=== PATIENT | female | born 1955 | race African-American/Black ===

== ENCOUNTER 2019-09-30 12:27 | Inpatient (IN) | payer MEDICARE, MEDICAID ==
[~2019-09-30] VITALS: Ht 162.6 cm; Wt 59.4 kg
[~2019-09-30 12:27] MED LIST: CATAPRES0.1 MG ORAL; CRESTOR40 MG ORAL; DIOVAN HCT 1601 EACH ORAL; NEURONTIN300 MG ORAL; NOVOLIN R100 UNIT/1 SUBQ; PREMPRO 0.625-1 EAC1 PO; VICODIN ES 7.51 EAC1 ORAL; VITAMIN D1000 UNI1 ORAL
[2019-09-30 12:30] VITALS: BP 181/70
--- NOTE | 2019-09-30 12:30 | NUR ---
Note undone in EDM - 09/30/19 at 1407 by JULES ED Nurse Note: Patient brought into [facility] by wheelchair accompanied by cousin c/o n/v/d x 1 week with generalized 10/10 body aches d/t recent radiation therapy post-cervical cancer dx. Patient AxO x 4, unable to ambulate more than a few steps d/t the pain she feels. 22g IV started in right hand. 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 VSS. Blood sent to lab. Patient unable to urinate at the moment.
--- NOTE | 2019-09-30 12:30 | NUR ---
ED Nurse Note: Patient BIBA from convalescent facility d/t hypertension. 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 Blood drawn and sent to lab.
--- NOTE | 2019-09-30 12:54 | NUR ---
ED Nurse Note: Patient O2 sat 80% with god waveform on the monitor. Patient denies shortness of breath. Patient placed on 2L NC, O2 sat went up to 94%. Dr. Washington notified.
[2019-09-30] MEDS ORDERED: Nitroglycerin 2% oint pkt TOPIC ONE (13:00)
--- NOTE | 2019-09-30 13:24 | Emergency Room Report ---
History of Present Illness General Chief Complaint: Hypertension Source: Patient (Todd Washington M.D.) Present Illness HPI 64-year-old female history of hypertension, diabetes, end-stage renal disease on dialysis Thursday, stroke presented for hypertension. Patient apparently was hypertensive this morning in the 220s. EMS called. On arrival to ER patient with systolic blood pressure in the 180s. She complained of mild shortness of breath but denied any chest pain, nausea, vomiting. She does report a cough but no fever. He did go to dialysis yesterday. (Todd Washington M.D.) Allergies: Coded Allergies: CODEINE (Verified Allergy, Mild, 06/16/14) OXYCODONE (Verified Allergy, Mild, 06/16/14) Uncoded Allergies: SULFA (Allergy, Unknown, 09/30/19) Patient History Past Medical History: see triage record Last Menstrual Period: na Reviewed Nursing Documentation: PMH: Agreed; PSxH: Agreed (Todd Washington M.D.) Nursing Documentation-PMH Hx Cardiac Problems: Yes - ESRD with HD Hx Hypertension: Yes Hx Diabetes: Yes Hx Cancer: No Hx Gastrointestinal Problems: No Hx Neurological Problems: No (Todd Washington M.D.) Review of Systems All Other Systems: negative except mentioned in HPI (Todd Washington M.D.) Physical Exam Vital Signs Date Time Temp Pulse Resp B/P (MAP) Pulse Ox O2 Delivery O2 Flow Rate FiO2 09/30/19 12:24 98.8 77 14 184/74 (110) 97 Room Air Sp02 EP Interpretation: reviewed, abnormal General Appearance: well appearing, no apparent distress Head: normocephalic, atraumatic Eyes: bilateral eye PERRL, bilateral eye EOMI ENT: hearing grossly normal, moist mucus membranes Neck: full range of motion, supple Respiratory: normal breath sounds, no respiratory distress, no retraction, no wheezing, other - Rhonchi noted Cardiovascular #1: normal peripheral pulses, regular rate, rhythm, no murmur, other - Trace lower extremity edema. Dialysis access left upper extremity Gastrointestinal: non tender, soft, non-distended, no guarding Neurologic: alert, oriented x3, no focal defects Skin: normal color, warm/dry (Todd Washington M.D.) Medical Decision Making Diagnostic Impression: Primary Impression: Hypertensive urgency Additional Impressions: Fluid overload Qualified Codes: E87.79 - Other fluid overload Pulmonary edema Qualified Codes: J81.0 - Acute pulmonary edema End stage renal disease on dialysis ER Course Differential diagnosis included but not limited to fluid overload, pneumonia, CHF, hypertensive urgency to name a few. Patient given nitroglycerin in addition to hydralazine on arrival. Chest x-ray demonstrated evidence of bilateral pulmonary edema with pleural effusion. As patient is a dialysis patient she will be admitted to the hospital for urgent dialysis. Case discussed with Dr. Stone. He agreed to admit. Laboratory Tests Test 09/30/19 14:30 10/01/19 18:45 White Blood Count 8.2 K/UL (4.8-10.8) 2.9 K/UL (4.8-10.8) #L Red Blood Count 2.42 M/UL (4.20-5.40) L 2.29 M/UL (4.20-5.40) L Hemoglobin 7.0 G/DL (12.0-16.0) L 6.4 G/DL (12.0-16.0) *L Hematocrit 20.6 % (37.0-47.0) L 19.8 % (37.0-47.0) L Mean Corpuscular Volume 85 FL (80-99) 87 FL (80-99) Mean Corpuscular Hemoglobin 29.0 PG (27.0-31.0) 28.0 PG (27.0-31.0) Mean Corpuscular Hemoglobin Concent 34.1 G/DL (32.0-36.0) 32.3 G/DL (32.0-36.0) Red Cell Distribution Width 15.0 % (11.6-14.8) H 16.5 % (11.6-14.8) H Platelet Count 213 K/UL (150-450) 189 K/UL (150-450) Mean Platelet Volume 8.5 FL (6.5-10.1) 9.8 FL (6.5-10.1) Neutrophils (%) (Auto) % (45.0-75.0) % (45.0-75.0) Lymphocytes (%) (Auto) % (20.0-45.0) % (20.0-45.0) Monocytes (%) (Auto) % (1.0-10.0) % (1.0-10.0) Eosinophils (%) (Auto) % (0.0-3.0) % (0.0-3.0) Basophils (%) (Auto) % (0.0-2.0) % (0.0-2.0) Differential Total Cells Counted 100 100 Neutrophils % (Manual) 74 % (45-75) 63 % (45-75) Lymphocytes % (Manual) 16 % (20-45) L 31 % (20-45) Monocytes % (Manual) 9 % (1-10) 5 % (1-10) Eosinophils % (Manual) 1 % (0-3) 1 % (0-3) Basophils % (Manual) 0 % (0-2) 0 % (0-2) Band Neutrophils 0 % (0-8) 0 % (0-8) Platelet Estimate Adequate Adequate Platelet Morphology Normal Normal Hypochromasia 1+ Anisocytosis 1+ 1+ Sodium Level 140 MMOL/L (136-145) 136 MMOL/L (136-145) Potassium Level 3.5 MMOL/L (3.5-5.1) 3.5 MMOL/L (3.5-5.1) Chloride Level 98 MMOL/L (98-107) 97 MMOL/L (98-107) L Carbon Dioxide Level 28 MMOL/L (21-32) 29 MMOL/L (21-32) Anion Gap 14 mmol/L (5-15) 10 mmol/L (5-15) Blood Urea Nitrogen 25 mg/dL (7-18) H 18 mg/dL (7-18) Creatinine 5.8 MG/DL (0.55-1.30) H 4.5 MG/DL (0.55-1.30) H Estimate Glomerular Filtration Rate 8.8 mL/min (>60) 12.0 mL/min (>60) Glucose Level 119 MG/DL (74-106) H 148 MG/DL (74-106) H Calcium Level 9.2 MG/DL (8.5-10.1) 9.2 MG/DL (8.5-10.1) Total Bilirubin 0.6 MG/DL (0.2-1.0) 0.4 MG/DL (0.2-1.0) Aspartate Amino Transferase (AST) 20 U/L (15-37) 17 U/L (15-37) Alanine Aminotransferase (ALT) 14 U/L (12-78) 17 U/L (12-78) Alkaline Phosphatase 117 U/L (46-116) H 99 U/L (46-116) Troponin I 0.040 ng/mL (0.000-0.056) 0.013 ng/mL (0.000-0.056) Pro-B-Type Natriuretic Peptide 04553 pg/mL (0-125) H Total Protein 6.7 G/DL (6.4-8.2) 6.7 G/DL (6.4-8.2) Albumin 3.1 G/DL (3.4-5.0) L 2.5 G/DL (3.4-5.0) L Globulin 3.6 g/dL 4.2 g/dL Albumin/Globulin Ratio 0.9 (1.0-2.7) L 0.6 (1.0-2.7) L Hepatitis B Surface Antibody, Quant Pending Nucleated Red Blood Cells 2 /100 WBC Polychromasia 1+ Triglycerides Level 93 MG/DL (30-150) Cholesterol Level 163 MG/DL (< 200) LDL Cholesterol 75 mg/dL (<100) HDL Cholesterol 54 MG/DL (40-60) Cholesterol/HDL Ratio 3.0 (3.3-4.4) L Microbiology Date/Time Source Procedure Growth Status 09/30/19 15:28 Rectum VRE Culture - Final NO VANCOMYCIN RESISTANT ENTEROCOCCUS ... Complete (Todd Washington M.D.) ER Course Please see above note. Patient developed respiratory distress with hypoxia in the emergency department. BiPAP ordered and increased level of care. Patient improved on BiPAP. No respiratory distress. Anticipated patient will improve with dialysis. Evaluated by Dr. Stone in the emergency department. Laboratory Tests Test 09/30/19 14:30 White Blood Count 8.2 K/UL (4.8-10.8) Red Blood Count 2.42 M/UL (4.20-5.40) L Hemoglobin 7.0 G/DL (12.0-16.0) L Hematocrit 20.6 % (37.0-47.0) L Mean Corpuscular Volume 85 FL (80-99) Mean Corpuscular Hemoglobin 29.0 PG (27.0-31.0) Mean Corpuscular Hemoglobin Concent 34.1 G/DL (32.0-36.0) Red Cell Distribution Width 15.0 % (11.6-14.8) H Platelet Count 213 K/UL (150-450) Mean Platelet Volume 8.5 FL (6.5-10.1) Neutrophils (%) (Auto) % (45.0-75.0) Lymphocytes (%) (Auto) % (20.0-45.0) Monocytes (%) (Auto) % (1.0-10.0) Eosinophils (%) (Auto) % (0.0-3.0) Basophils (%) (Auto) % (0.0-2.0) Differential Total Cells Counted 100 Neutrophils % (Manual) 74 % (45-75) Lymphocytes % (Manual) 16 % (20-45) L Monocytes % (Manual) 9 % (1-10) Eosinophils % (Manual) 1 % (0-3) Basophils % (Manual) 0 % (0-2) Band Neutrophils 0 % (0-8) Platelet Estimate Adequate Platelet Morphology Normal Hypochromasia 1+ Anisocytosis 1+ Sodium Level 140 MMOL/L (136-145) Potassium Level 3.5 MMOL/L (3.5-5.1) Chloride Level 98 MMOL/L (98-107) Carbon Dioxide Level 28 MMOL/L (21-32) Anion Gap 14 mmol/L (5-15) Blood Urea Nitrogen 25 mg/dL (7-18) H Creatinine 5.8 MG/DL (0.55-1.30) H Estimate Glomerular Filtration Rate 8.8 mL/min (>60) Glucose Level 119 MG/DL (74-106) H Calcium Level 9.2 MG/DL (8.5-10.1) Total Bilirubin 0.6 MG/DL (0.2-1.0) Aspartate Amino Transferase (AST) 20 U/L (15-37) Alanine Aminotransferase (ALT) 14 U/L (12-78) Alkaline Phosphatase 117 U/L (46-116) H Troponin I 0.040 ng/mL (0.000-0.056) Pro-B-Type Natriuretic Peptide 93202 pg/mL (0-125) H Total Protein 6.7 G/DL (6.4-8.2) Albumin 3.1 G/DL (3.4-5.0) L Globulin 3.6 g/dL Albumin/Globulin Ratio 0.9 (1.0-2.7) L Hepatitis B Surface Antibody, Quant Pending (Tian Hernandez MD) EKG Diagnostic Results EP Interpretation: 77 Rate: normal Rhythm: NSR ST Segments: no acute changes (Todd Washington M.D.) Rhythm Strip Diag. Results Rhythm Strip Time: 14:00 EP Interpretation: yes Rate: 75 Rhythm: NSR, no ectopy (Todd Washington M.D.) EP Interpretation: yes Rhythm: NSR, no PVC's, no ectopy (Tian Hernandez MD) Chest X-Ray Diagnostic Results Chest X-Ray Diagnostic Results : Chest X-Ray Ordered: Yes # of Views/Limited/Complete: 1 View Indication: Shortness of Breath EP Interpretation: Yes Interpretation: other - Bilateral pleural effusion with pulmonary edema. Electronically Signed by: Todd Washington MD (Todd Washington M.D.) Last Vital Signs Date Time Temp Pulse Resp B/P (MAP) Pulse Ox O2 Delivery O2 Flow Rate FiO2 09/30/19 13:07 181/79 09/30/19 12:24 98.8 77 14 97 Room Air (Todd Washington M.D.) Last Vital Signs Date Time Temp Pulse Resp B/P (MAP) Pulse Ox O2 Delivery O2 Flow Rate FiO2 10/01/19 00:00 72 10/01/19 00:00 Nasal Cannula 2.0 09/30/19 23:24 139/60 09/30/19 18:48 18 96 30 09/30/19 17:15 97.6 Status: improved (Tian Hernandez MD) Disposition: ADMITTED INPATIENT Condition: Serious Todd Washington M.D. Sep 30, 2019 13:24 Tian Hernandez MD Sep 30, 2019 15:32
--- NOTE | 2019-09-30 14:15 | Diagnostic Imaging Report ---
Indication: Reason For Exam: SOB Technique: One view of the chest Comparison: 11/02/2006 Findings: The heart is enlarged. There is generalized bilateral interstitial and hazy airspace disease, more focal dense consolidation in the right upper lobe.. There are bilateral pleural effusions, right greater than left. There are degenerative spondylosis changes. There is a right chest port catheter. Venous stents are seen in the left axilla. Impression: Cardiac megaly Bilateral interstitial and airspace disease, likely pulmonary edema, infiltrates also possible. Bilateral right greater than left pleural effusions Other findings as noted Findings discussed by phone with Dr. Reed in the emergency room at the time of interpretation
--- NOTE | 2019-09-30 14:20 | NUR ---
ED Nurse Note: Adjunct History Instructor from lab at bedside obtaining blood
[2019-09-30 14:30] VITALS: BP 169/78
[2019-09-30 14:43] LABS: HEMATOCRIT 20.6 % (37.0-47.0); MEAN CORPUSCULAR VOLUME 85 FL (80-99); PLATELET COUNT 213 K/UL (150-450); RED BLOOD COUNT 2.42 M/UL (4.20-5.40); WHITE BLOOD COUNT 8.2 K/UL (4.8-10.8)
[2019-09-30 14:56] LABS: ANION GAP 14 mmol/L (5-15); BLOOD UREA NITROGEN 25 mg/dL (7-18); CALCIUM 9.2 MG/DL (8.5-10.1); CARBON DIOXIDE 28 MMOL/L (21-32); CHLORIDE 98 MMOL/L (98-107); CREATININE 5.8 MG/DL (0.55-1.30); POTASSIUM 3.5 MMOL/L (3.5-5.1); SODIUM 140 MMOL/L (136-145)
[2019-09-30 15:05] LABS: ALANINE AMINOTRANSFERASE 14 U/L (12-78); ALBUMIN 3.1 G/DL (3.4-5.0); ALBUMIN/GLOBULIN RATIO 0.9 (1.0-2.7); ALKALINE PHOSPHATASE 117 U/L (46-116); ASPARTATE AMINO TRANSFERASE 20 U/L (15-37); BILIRUBIN,TOTAL 0.6 MG/DL (0.2-1.0)
[2019-09-30] MEDS ORDERED: Heparin Sod 1000 units/ml 10ml IV PRN (15:30)
--- NOTE | 2019-09-30 15:40 | NUR ---
ED Nurse Note: Patient feeling more short of breath, RR 26, Dr. Hernandez aware. RT called to start patient on BiPAP.
--- NOTE | 2019-09-30 15:44 | NUR ---
Received pt on 2L NC 28%FiO2. Placed pt on Bipap 10/5- 30%FiO2 per Dr. Hernandez's order. Foam tapes applied on nose bridge, cheeks and chin. Pt is awake, alert, able to follow commands. Pt is SOB RR 26-28bpm, saturates at 98% on 30%FiO2. Alarms are set and audible, Bipap is plugged into the red outlet, ambu bag is at bedside. Will continue to monitor pt.
--- NOTE | 2019-09-30 16:10 | NUR ---
ED Nurse Note: Patient feeling less short of breath on BiPAP, RR 19, patient resting in bed.
[2019-09-30 16:30] VITALS: BP 151/73
--- NOTE | 2019-09-30 17:00 | NUR ---
NURSE NOTES: Received report from MAYRA Marti. Patient arrived to unit in stable condition. Patient is alert and oriented x 3-4. No s/sx of SOB, breathing is even and unlabored, pt continued on BiPAP 10/5 FiO2 30% from ER at this time. SpO2 98%. Denies any presence of pain or discomfort at this time. Pt noted with Left upper arm AV shunt, right breast mastectomy, right chest port-a-cath, no skin breakdown noted. Bed is in lowest position, brakes engaged. call light is kept within easy reach. Will continue to monitor patient.
--- NOTE | 2019-09-30 17:04 | NUR ---
ED Nurse Note: Report given to Kaia NUNEZ
[2019-09-30] MEDS ORDERED: RENVELA0.8 GM ORAL (17:11)
[2019-09-30] MEDS ORDERED: ADALAT10 MG ORAL (17:11)
[2019-09-30] MEDS ORDERED: DIOVAN80 MG ORAL (17:11)
[2019-09-30] MEDS ORDERED: VITAMIN B-1100 MG ORAL (17:11)
[2019-09-30] MEDS ORDERED: FOLIC ACID1 MG ORAL (17:11)
[2019-09-30] MEDS ORDERED: LOVENOX10 MG SUBQ (17:11)
[2019-09-30] MEDS ORDERED: LATANOPROST2.5 ML BOTH EYES (17:11)
[2019-09-30] MEDS ORDERED: GABAPENTIN800 MG ORAL (17:11)
--- NOTE | 2019-09-30 17:30 | History and Physical Report ---
DATE OF ADMISSION: 09/30/2019 CHIEF COMPLAINT AND REASON FOR HOSPITALIZATION: The patient admitted with shortness of breath, CHF, and possible infiltrate. HISTORY OF PRESENT ILLNESS: The patient is a resident of an [facility], has end-stage renal disease, on dialysis; history of breast cancer with a right mastectomy; history of CVA with expressive aphasia; diabetes; anemia; hypertension. She had marked elevation of blood pressure over 200 systolic in the intermediate and came to the emergency room where chest x-ray suggest CHF. ALLERGIES: The patient is unable to give me an adequate list of allergies. Noted, sulfa and codeine, not clear in nature. PAST SURGICAL HISTORY: Right mastectomy and dialysis. MEDICATIONS: Dulcolax suppository p.r.n., Lovenox 30 mg daily, , Fleet Enema p.r.n., folic acid 1 mg daily, gabapentin 800 mg every 8 hours, latanoprost one drop both eyes at bedtime, MOM p.r.n., nifedipine 10 mg two times a day, Novolin R sliding scale, Renvela two tablets three times a day, Tylenol p.r.n., valsartan 160 mg b.i.d., vitamin B1 one tablet daily. include aspirin 81 mg daily, atorvastatin 20 mg daily, clonidine 0.2 mg every 4 hours p.r.n., DSS 100 mg daily, Cymbalta 60 mg daily, diphenhydramine 50 mg p.r.n. at bedtime. SYSTEM REVIEW: She is a poor historian. HEAD, EYES, EARS, NOSE, AND THROAT: Vision and hearing appear to be good. ENDOCRINE: History of diabetes. No known thyroid disease. PULMONARY: No definite asthma. CARDIAC: No definite angina or IN per the patient. GASTROINTESTINAL: Denies nausea and vomiting. GENITOURINARY: She has end-stage renal disease. NEUROLOGIC: CVA. PHYSICAL EXAMINATION: GENERAL: The patient is lying in bed, moderately short of breath. VITAL SIGNS: In the emergency room, blood pressure 184/74, temperature 98.8, pulse 77, respirations 14. HEAD, EYES, EARS, NOSE, AND THROAT: Sclerae are nonicteric. Ocular motions intact in all directions. Oral mucosa moist. NECK: No adenopathy. LUNGS: Diminished breath sounds at the bases. HEART: She is tachypneic. I hear no rales or rhonchi. CHEST: There is a right mastectomy. There is a nodule in the right upper chest area, which could be tumor and her incisions of the mastectomy is somewhat nodular. Left breast is intact, no masses. ABDOMEN: Soft without organomegaly. EXTREMITIES: No edema, cyanosis, or clubbing. She has an AV fistula. NEUROLOGIC: She is alert, responsive, restless. Has a fluent aphasia, able to answer some questions. Ocular motions are intact in all directions. Smile is symmetric. She has a mild right-sided weakness. IMPRESSION: 1. Congestive heart failure, acute on chronic. 2. Possible pleural effusions, possible metastatic disease from breast cancer. 3. End-stage renal disease. 4. History of CVA. 5. History of stroke with aphasia. PLAN: Dialysis. Empiric antibiotics. Comfort measures and waiting call back from the family. Golden Stone M.D. DR: ZAFAR JOB#: [id number] CC:
--- NOTE | 2019-09-30 18:30 | NUR ---
NURSE NOTES: Received admission orders from Dr. Stone via telephone. Per Dr. Stone pt will have STAT hemodialysis tonight and tomorrow, [facility] dialysis made aware, [facility] nurse will perform HD tonight. Dr. Stnoe made aware of hemoglobin level of 7.0, per Dr. Stone no transfusion at this time. Per Dr. Stone may use right chest port-a-cath for IV infusion. Draw blood labs during hemodialysis. Continue SNF medications. Clonidine 0.1 mg PO Q2HR PRN for SBP >175 mmHg. Orders entered, noted, and carried out. Will continue to monitor patient.
--- NOTE | 2019-09-30 18:32 | NUR ---
NURSE NOTES: Dr. Stone ordered code status DNR/DNI. Patient noted with POLST: DNR, comfort measures, no artificial tube feedings. POLST in chart. Charge nurse aware. Will continue to monitor patient.
--- NOTE | 2019-09-30 18:45 | NUR ---
NURSE NOTES: Per [facility] pharmacist, facility does not carry Valsartan and is substituted with Irbesartan. Noted.
--- NOTE | 2019-09-30 19:35 | NUR ---
NURSE NOTES: Received pt from Devante Ramirez RN. pt is observed resting in bed, eyes closed, lethargic, opens eyes to name and light shaking. no s/sx of pain noted at this time. pt is on 2 L O2 via NC, tolerating well, saturation: 98%; no s/sx of respiratory distress noted. equipment monitor phototypesetting shows SR at this time; no acute cardiac distress noted. R chest port-a-cath noted, patent and intact, asymptomatic. Left AV shunt noted, thrill and bruit present upon palpation. bed in lowest position and locked, siderails up X3, call light within reach. will continue to monitor.
[2019-09-30] MEDS ORDERED: Acetaminophen 500mg (ES) tab ORAL PRN (19:45)
[2019-09-30 20:00] VITALS: BP 135/69
[2019-09-30] MEDS ORDERED: MILK OF MA400 MG/51 ORAL (20:23)
[2019-09-30] MEDS ORDERED: FLEET ENEMA133 ML RECTAL (20:23)
[2019-09-30] MEDS ORDERED: NOVOLOG100 UNITS1 SQ (20:23)
[2019-09-30] MEDS ORDERED: ACETAMINOPHEN325 M1 ORAL (20:23)
[2019-09-30] MEDS ORDERED: NOVOLIN R100 UNIT/1 SUBQ (20:23)
[2019-09-30] MEDS ORDERED: TYLENOL EXTRA500 MG ORAL (20:23)
[2019-09-30] MEDS ORDERED: DULCOLAX10 MG RC (20:23)
[2019-09-30] MEDS ORDERED: RENVELA800 MG ORAL (20:23)
--- NOTE | 2019-09-30 20:30 | NUR ---
NURSE NOTES: pt receiving HD, will hold medications until after HD is completed. pt is in stable condition at this time. will continue to monitor.
[2019-09-30] MEDS ORDERED: CATAPRES0.2 MG ORAL (20:51)
[2019-09-30] MEDS ORDERED: BENADRYL ALLERG25 M1 PO (20:51)
[2019-09-30] MEDS ORDERED: CYMBALTA60 MG ORAL (20:51)
[2019-09-30] MEDS ORDERED: COLACE100 MG ORAL (20:51)
[2019-09-30] MEDS ORDERED: ATORVASTATIN CA20 MG ORAL (20:51)
[2019-09-30] MEDS: Heparin 5000 units/ml inj SUBQ SCH (21:00)
[2019-09-30] MEDS: NovoLOG Insulin Flexpen SUBQ SCH (21:00)
[2019-09-30] MEDS: Aspirin EC 81mg tab ORAL SCH (23:23)
[2019-09-30] MEDS: Carvedilol 6.25mg Tab ORAL SCH (23:23)
[2019-09-30] MEDS: Losartan 50mg tab ORAL SCH (23:24)
[2019-09-30] MEDS: Latanoprost 0.005% Opth 2.5ml Soln BOTH EYES SCH (23:24)
[2019-09-30] MEDS: cefTRIAXone 1 GM in D5W 55 ML IVPB SCH (23:34)
[2019-10-01] VITALS (8 sets, daily range): BP systolic 130–212; BP diastolic 55–89
--- NOTE | 2019-10-01 04:20 | NUR ---
NURSE NOTES: pt attempted to ambulate unassisted and was exhibiting s/sx of visual and auditory hallucinations. pt c/o generalized pain. tylenol administered as per MD order; able to calm patient with therapeutic communication. pt noted to have temp of 100.0, cooling measures applied. ice packs placed on pt. will continue to monitor.
--- NOTE | 2019-10-01 04:30 | Consultation ---
DATE OF CONSULTATION: 09/30/2019 CARDIOLOGY CONSULTATION CONSULTING PHYSICIAN: Tian Dahl M.D. REQUESTING PHYSICIAN: Golden Stone M.D. REASON FOR CONSULTATION: Congestive heart failure. HISTORY OF PRESENT ILLNESS: This is a 64-year-old female, residing at a [facility] facility with end-stage renal disease, on hemodialysis who also suffered a prior stroke and has expressive aphasia. She has had increasing blood pressure over the past few days coupled with signs of congestive heart failure. Hospitalization has been initiated and I have been asked to assist with cardiovascular care. PAST MEDICAL HISTORY: Includes breast cancer with right mastectomy; end-stage renal disease, on hemodialysis; cerebrovascular accident with expressive aphasia; insulin-requiring diabetes mellitus; anemia of chronic kidney disease; hypertension with hypertensive heart disease; history of congestive heart failure; diabetic neuropathy, and hyperlipidemia. ALLERGIES: Include sulfa and codeine. MEDICATIONS: Prior to admission, reviewed and reconciled. SOCIAL HISTORY: Negative for smoking, alcohol abuse. FAMILY HISTORY: Not known. REVIEW OF SYSTEMS: No known history of retinopathy. Hearing is stable. She has expressive aphasia from a prior stroke. There are no records available regarding her current cardiac ejection fraction. There is no known history of cardiac arrhythmias or myocardial infarction. There is no history of asthma or COPD. There is no history of abnormal blood clotting. She is on insulin for diabetes as well as anti-lipid drugs. There is no history of thyroid disorder. She is on dialysis three times a week. PHYSICAL EXAMINATION: GENERAL: She is in moderate respiratory distress due to shortness of breath. VITAL SIGNS: Blood pressure 184/74, heart rate 77, respiratory rate 14, and afebrile. HEENT: Normocephalic and atraumatic. Conjunctivae pink. Sclerae are anicteric. Oropharynx clear. Mucous membranes moist. NECK: Supple. Jugular venous pressure grossly elevated. LUNGS: Diminished breath sounds and rales. CARDIAC: Regular rhythm and rate. Normal S1 and S2. A 1/6 systolic murmur at apex. BREASTS: Right mastectomy noted. ABDOMEN: Soft and nontender. EXTREMITIES: No clubbing or cyanosis. No edema. There is an AV fistula with palpable bruit. NEUROLOGIC: Aphasia to some questioning and mild right-sided weakness. LABORATORY AND DIAGNOSTIC DATA: Chest x-ray reveals pleural effusions bilaterally, right greater than left as well as pulmonary venous congestion. Labs - sodium 140, potassium 3.5, bicarbonate 28, BUN 25, creatinine 5.8, and glucose 119. Troponin 0.04. Pro-natriuretic peptide almost 22,000. Albumin 3.1. White count 8.2 and hemoglobin 7. EKG reveals sinus rhythm and nonspecific ST-T wave changes. IMPRESSION: 1. Acute on chronic systolic and diastolic congestive heart failure. 2. Pleural effusions. 3. End-stage renal disease. 4. Malignant hypertension/hypertensive urgency. 5. Anemia of chronic kidney disease. 6. Insulin-requiring diabetes mellitus with multiple complications. 7. History of breast cancer with right mastectomy. 8. History of cerebrovascular accident. PLAN: 1. Hemodialysis with ultrafiltration for volume management. 2. Maximize antihypertensive and anti-failure regimen (see orders). 3. Continue anti-platelet therapy. 4. Continue statin drug for LDL goal less than 70. 5. Titrate insulin dosing. 6. Topical nitrates for symptomatic relief of shortness of breath due to volume overload at this time. 7. DVT prophylaxis. 8. Echocardiogram to evaluate left ventricular function. 9. Consider symptomatic thoracentesis. 10. Favor packed red blood cell transfusion during hemodialysis to improve oxygen carrying capacity. Tian Dahl M.D. DR: TIFFANIE JOB#: [id number] CC:
--- NOTE | 2019-10-01 05:52 | NUR ---
NURSE NOTES: pt's temp noted to be 98.6. will continue to monitor.
[2019-10-01] MEDS: Nitroglycerin 2% oint pkt TOPIC SCH ×3 (06:00→18:31)
[2019-10-01] MEDS: NovoLOG Insulin Flexpen SUBQ SCH ×4 (06:30→21:00)
--- NOTE | 2019-10-01 07:29 | NUR ---
HAND-OFF: Report given to MAYRA Cruz. pt is in stable condition.
--- NOTE | 2019-10-01 07:30 | NUR ---
NURSE NOTES: Received report from Devante Duffy RN. Patient asleep in bed, opens eyes spontaneously, confused but able to make needs known and follow commands. Receiving O2 via nasal cannula @ 2L/min, respirations even and unlabored. Left AV shunt noted with bruit and thrill. Right upper chest portacath asymptomatic. Bed locked in lowest position with side rails up x 3. All needs attended to. Call light within reach. Will continue to monitor.
[2019-10-01] MEDS: Aspirin EC 81mg tab ORAL SCH (08:39)
[2019-10-01] MEDS: Losartan 50mg tab ORAL SCH (08:39)
[2019-10-01] MEDS: Thiamine 100mg tab ORAL SCH (08:39)
[2019-10-01] MEDS: Carvedilol 6.25mg Tab ORAL SCH (08:40)
[2019-10-01] MEDS: Heparin 5000 units/ml inj SUBQ SCH ×2 (08:51→20:28)
[2019-10-01] MEDS ORDERED: NIFEdipine 10mg cap ORAL SCH (09:00)
[2019-10-01] MEDS ORDERED: Irbesartan 150mg tablet ORAL SCH (09:00)
--- NOTE | 2019-10-01 09:33 | NUR ---
NURSE NOTES: Patient's SBP > 200, routine meds and PRN clonidine given as ordered. BP is currently 177/70. Dr. Stone notified, no new orders received. Per Dr. Stone, no orders will be given until he sees patient later in the day. Will continue to monitor.
--- NOTE | 2019-10-01 10:11 | NUR ---
NURSE NOTES: BP currently 159/81. Will continue to monitor.
--- NOTE | 2019-10-01 10:53 | Diagnostic Imaging Report ---
EXAM: XR Chest, 1 View CLINICAL HISTORY: COUGH TECHNIQUE: Frontal view of the chest. COMPARISON: No relevant prior studies available. FINDINGS: Lungs: Patchy infiltrate or lesion in the right upper lung field. Left basilar atelectasis/consolidation. Accentuation of bronchovascular /interstitial markings. Pleural space: Likely bilateral pleural effusions, right greater than left. No pneumothorax. Heart: The large cardiac silhouette. Mediastinum: Unremarkable. Bones/joints: No acute fracture. Vasculature: Stent graft in the left axillary area. Tubes, lines and devices: Port-A-Cath. IMPRESSION: Patchy infiltrate or lesion in the right upper lung field. Left basilar atelectasis/consolidation.
--- NOTE | 2019-10-01 11:13 | General Progress Note ---
Assessment/Plan Problem List: (1) Nephropathy due to secondary diabetes ICD Codes: E13.21 - Other specified diabetes mellitus with diabetic nephropathy SNOMED: 4187730, 091754602 (2) CVA, old, aphasia ICD Codes: I69.320 - Aphasia following cerebral infarction SNOMED: 338832789 (3) Anemia in chronic kidney disease ICD Codes: N18.9 - Chronic kidney disease, unspecified; D63.1 - Anemia in chronic kidney disease SNOMED: 667763214 (4) Breast cancer ICD Codes: C50.919 - Malignant neoplasm of unspecified site of unspecified female breast SNOMED: 633654812 (5) End stage renal disease on dialysis ICD Codes: N18.6 - End stage renal disease; Z99.2 - Dependence on renal dialysis SNOMED: 441371759 (6) Fluid overload ICD Codes: E87.70 - Fluid overload, unspecified SNOMED: 13877498 Qualifiers: Qualified Codes: E87.79 - Other fluid overload (7) Pulmonary edema ICD Codes: J81.1 - Chronic pulmonary edema SNOMED: 44196813 Qualifiers: Qualified Codes: J81.0 - Acute pulmonary edema (8) Hypertensive urgency ICD Codes: I16.0 - Hypertensive urgency SNOMED: 302403474 Assessment/Plan: dialysis for fluid overload, f/u lab, epo, stool ob , titrate bp and cardiac meds Subjective Constitutional: Reports: weakness HEENT: Reports: no symptoms Cardiovascular: Reports: no symptoms Respiratory: Reports: shortness of breath Gastrointestinal/Abdominal: Reports: no symptoms Neurologic/Psychiatric: Reports: pre-existing deficit Endocrine: Reports: no symptoms Hematologic/Lymphatic: Reports: anemia Allergies: Coded Allergies: CODEINE (Verified Allergy, Mild, 06/16/14) OXYCODONE (Verified Allergy, Mild, 06/16/14) Uncoded Allergies: SULFA (Allergy, Unknown, 09/30/19) Objective Last 24 Hour Vital Signs Date Time Temp Pulse Resp B/P (MAP) Pulse Ox O2 Delivery O2 Flow Rate FiO2 10/01/19 10:53 212/84 10/01/19 10:11 159/81 (107) 10/01/19 09:30 177/70 (105) 10/01/19 09:28 Nasal Cannula 2.0 28 10/01/19 08:41 212/88 10/01/19 08:40 67 212/88 10/01/19 08:39 212/88 10/01/19 08:00 98.4 67 16 212/88 (129) 100 10/01/19 08:00 Nasal Cannula 2.0 10/01/19 08:00 2.0 10/01/19 07:57 69 10/01/19 06:00 159/89 10/01/19 04:00 100.0 70 22 159/89 (112) 98 10/01/19 04:00 2.0 10/01/19 04:00 Nasal Cannula 2.0 10/01/19 04:00 69 10/01/19 00:00 2.0 10/01/19 00:00 72 10/01/19 00:00 98.8 68 20 130/55 (80) 100 10/01/19 00:00 Nasal Cannula 2.0 09/30/19 23:24 139/60 09/30/19 23:23 71 139/60 09/30/19 20:00 67 09/30/19 20:00 Nasal Cannula 2.0 09/30/19 20:00 98.9 74 20 135/69 (91) 98 09/30/19 20:00 2.0 09/30/19 18:48 70 18 96 30 09/30/19 18:12 Bi-Pap 09/30/19 17:29 77 31 97 Bi-Pap 30 09/30/19 17:29 77 31 97 30 09/30/19 17:15 97.6 73 30 151/73 99 Bi-pap 2.0 30 09/30/19 16:34 80 30 99 30 09/30/19 16:30 97.6 73 18 151/73 97 Bi-pap 09/30/19 16:00 76 19 99 Bi-pap 09/30/19 15:44 79 28 Nasal Cannula 2.0 28 09/30/19 15:44 72 26 98 30 09/30/19 15:40 81 28 92 Nasal Cannula 3.0 09/30/19 14:30 98.0 83 22 169/78 95 Nasal Cannula 2.0 09/30/19 13:44 186/70 09/30/19 13:07 181/79 09/30/19 12:30 78 18 Nasal Cannula 2.0 09/30/19 12:30 98.0 81 18 181/70 94 Nasal Cannula 2.0 09/30/19 12:24 98.8 77 14 184/74 (110) 97 Room Air Intake and Output 09/30/19 10/01/19 19:00 07:00 Intake Total 0 ml 6085 ml Balance 0 ml 6085 ml Intake Oral 0 ml 30 ml IV Total 55 ml Hemodialysis 6000 ml Laboratory Tests 09/30/19 14:30: White Blood Count 8.2, Red Blood Count 2.42L, Hemoglobin 7.0L, Hematocrit 20.6L , Mean Corpuscular Volume 85, Mean Corpuscular Hemoglobin 29.0, Mean Corpuscular Hemoglobin Concent 34.1, Red Cell Distribution Width 15.0H, Platelet Count 213, Mean Platelet Volume 8.5, Neutrophils (%) (Auto) , Lymphocytes (%) (Auto) , Monocytes (%) (Auto) , Eosinophils (%) (Auto) , Basophils (%) (Auto) , Differential Total Cells Counted 100, Neutrophils % ( Manual) 74, Lymphocytes % (Manual) 16L, Monocytes % (Manual) 9, Eosinophils % ( Manual) 1, Basophils % (Manual) 0, Band Neutrophils 0, Platelet Estimate Adequate, Platelet Morphology Normal, Hypochromasia 1+, Anisocytosis 1+, Sodium Level 140, Potassium Level 3.5, Chloride Level 98, Carbon Dioxide Level 28, Anion Gap 14, Blood Urea Nitrogen 25H, Creatinine 5.8H, Estimat Glomerular Filtration Rate 8.8, Glucose Level 119H, Calcium Level 9.2, Total Bilirubin 0.6 , Aspartate Amino Transf (AST/SGOT) 20, Alanine Aminotransferase (ALT/SGPT) 14, Alkaline Phosphatase 117H, Troponin I 0.040, Pro-B-Type Natriuretic Peptide 40772E, Total Protein 6.7, Albumin 3.1L, Globulin 3.6, Albumin/Globulin Ratio 0.9L, Hepatitis B Surface Antibody, Quant [Pending] Height (Feet): 5 Height (Inches): 4.00 Weight (Pounds): 156 General Appearance: no apparent distress, alert EENT: normal ENT inspection Cardiovascular: normal rate, regular rhythm Respiratory/Chest: decreased breath sounds Abdomen: non tender, soft Edema: mild edema 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
[2019-10-01] MEDS: HydrALAZINE 50mg tab ORAL SCH ×3 (11:34→23:19)
[2019-10-01] MEDS ORDERED: Tubing IV Secondary IV ONE (12:06)
[2019-10-01] MEDS ORDERED: D5W 275ml ONE (12:06)
--- NOTE | 2019-10-01 19:28 | NUR ---
HAND-OFF: Report given to Wilberto Lowry RN. BP stable at SBP 140s. Receiving HD at this time.
--- NOTE | 2019-10-01 19:30 | NUR ---
NURSE NOTES: received pt from Nancy NUNEZ ., pt is resting and AOx 1-2 confused with aphagia noted. pt is on 2L of NC O2sat is at 99%. no SOB noted. pt is getting HD and HD nurse is at the bedside. Left AV shunt noted, Right port cath noted intact, clean, and patent. Bed at the lowest position, alarmed, and locked. call light within reach. will continue to monitor with pt with plan of care.
[2019-10-01 19:35] LABS: HEMATOCRIT 19.8 % (37.0-47.0); MEAN CORPUSCULAR VOLUME 87 FL (80-99); PLATELET COUNT 189 K/UL (150-450); RED BLOOD COUNT 2.29 M/UL (4.20-5.40); RED CELL DISTRIBUTION WIDTH 16.5 % (11.6-14.8); WHITE BLOOD COUNT 2.9 K/UL (4.8-10.8)
[2019-10-01 19:40] LABS: HEMOGLOBIN 6.4 G/DL (12.0-16.0)
[2019-10-01 19:51] LABS: ALANINE AMINOTRANSFERASE 17 U/L (12-78); ALBUMIN 2.5 G/DL (3.4-5.0); ALBUMIN/GLOBULIN RATIO 0.6 (1.0-2.7); ALKALINE PHOSPHATASE 99 U/L (46-116); ANION GAP 10 mmol/L (5-15); ASPARTATE AMINO TRANSFERASE 17 U/L (15-37); BILIRUBIN,TOTAL 0.4 MG/DL (0.2-1.0); BLOOD UREA NITROGEN 18 mg/dL (7-18); CALCIUM 9.2 MG/DL (8.5-10.1); CARBON DIOXIDE 29 MMOL/L (21-32); CHLORIDE 97 MMOL/L (98-107); CREATININE 4.5 MG/DL (0.55-1.30); POTASSIUM 3.5 MMOL/L (3.5-5.1); SODIUM 136 MMOL/L (136-145)
[2019-10-01 19:54] LABS: CHOLESTEROL 163 MG/DL (< 200); HDL CHOLESTEROL 54 MG/DL (40-60); TRIGLYCERIDES 93 MG/DL (30-150)
--- NOTE | 2019-10-01 20:11 | NUR ---
NURSE NOTES: Dr. Chase kitchen, of WBC 2.9, Creat 4.5 Hbg 6.4. new order received 2Units of RBC today if it is not able to given now, then do it tomorrow morning. will noted and carry on. pt is currently getting HD.
--- NOTE | 2019-10-01 20:22 | NUR ---
NURSE NOTES: obtained blood transfusion consent with July Flowers (pt's daughter) and she is aware of benefits and risk of getting Blood transfusion.
--- NOTE | 2019-10-01 20:26 | NUR ---
NURSE NOTES: HD ended, pt remains stable condition, no SOB noted.
[2019-10-01] MEDS: Dyna-Hex 2% Top Sol 2oz TOPIC SCH (20:45)
[2019-10-01] MEDS: Carvedilol 12.5mg tab ORAL SCH (21:00)
[2019-10-01] MEDS: cefTRIAXone 1 GM in D5W 55 ML IVPB SCH (21:03)
[2019-10-01] MEDS: Latanoprost 0.005% Opth 2.5ml Soln BOTH EYES SCH (21:56)
[2019-10-01] MEDS: Imdur 30mg tab ORAL SCH (21:57)
--- NOTE | 2019-10-01 23:30 | Progress Note ---
DATE: 10/01/2019 CARDIOLOGY PROGRESS NOTE SUBJECTIVE: Condition remains critical. Prognosis remains guarded. The patient remains with malignant range blood pressure readings. Continues to have signs of volume overload and severe anemia. Hemodialysis and ultrafiltration ongoing. PHYSICAL EXAMINATION: VITAL SIGNS: Blood pressure 159/81 to 212/84, heart rate 67, respiratory rate 16, and afebrile. NECK: Jugular venous pressure elevated. LUNGS: With bilateral rales. CARDIAC: Regular rhythm and rate. Normal S1, S2 with a 2/6 holosystolic murmur at the apex. ABDOMEN: Soft and nontender. EXTREMITIES: With dependent edema. DIAGNOSTIC DATA: Echocardiogram reviewed. Normal ejection fraction with moderate to severe mitral regurgitation, severe pulmonary hypertension, and tricuspid regurgitation. LABORATORY DATA: Potassium 3.5. Troponin negative. BUN 18 and creatinine 4.5. LDL 75. Albumin 2.5. White count 2.9. Hemoglobin 6.4 and platelets 189,000. Chest x-ray reveals upper lobe infiltrate versus possible nodule. IMPRESSION: 1. Severe anemia. 2. Acute myocardial ischemia. 3. Malignant hypertension/hypertensive urgency. 4. End-stage renal disease. 5. Severe pulmonary hypertension. 6. Valvular regurgitation involving mitral and tricuspid valves. 7. Acute on chronic diastolic congestive heart failure. PLAN: 1. Additional hemodialysis with ultrafiltration. 2. Packed red blood cell transfusion. 3. Epogen therapy per policy checker. 4. Maximize antihypertensive regimen. 5. Once euvolemic, further imaging of the lungs to reassess abnormalities described above. Tian Dahl M.D. DR: SHRADDHA JOB#: [id number] CC:
[2019-10-02] VITALS (10 sets, daily range): BP systolic 128–185; BP diastolic 55–92
--- NOTE | 2019-10-02 00:46 | NUR ---
NURSE NOTES: pt's BP is at 167/88 and hydralazine given that was scheduled at 0000. will continue to monitor pt closely.
--- NOTE | 2019-10-02 05:00 | NUR ---
NURSE NOTES: finished 1 unit of RBC no adverse reaction noted. no SOB noted. pt remains stable. call light within reach,.
[2019-10-02] MEDS: HydrALAZINE 50mg tab ORAL SCH ×4 (06:02→21:55)
[2019-10-02] MEDS: Nitroglycerin 2% oint pkt TOPIC SCH ×2 (06:02→11:39)
[2019-10-02] MEDS: NovoLOG Insulin Flexpen SUBQ SCH ×4 (06:07→22:05)
--- NOTE | 2019-10-02 07:45 | NUR ---
NURSE NOTES: Received report from Wilberto Lowry RN. Patient alert and oriented x 2-3, able to make needs known and follow commands. Receiving O2 via nasal cannula @ 2L/min, no s/s of respiratory distress noted. Left AV shunt noted with bruit and thrill. Right upper chest portacath asymptomatic. Bed locked in lowest position with side rails up x 3. All needs attended to. Call light within reach. Will continue to monitor.
--- NOTE | 2019-10-02 07:58 | NUR ---
HAND-OFF: Report given to Nancy NUNEZ. pt remains stable at this moment
[2019-10-02] MEDS: Carvedilol 12.5mg tab ORAL SCH ×2 (08:28→21:00)
[2019-10-02] MEDS: Aspirin EC 81mg tab ORAL SCH (08:28)
[2019-10-02] MEDS: Thiamine 100mg tab ORAL SCH (08:28)
[2019-10-02] MEDS: Losartan 50mg tab ORAL SCH (08:29)
[2019-10-02] MEDS: Heparin 5000 units/ml inj SUBQ SCH ×2 (08:29→21:00)
[2019-10-02] MEDS ORDERED: Heparin Sod 1000 units/ml 10ml IV PRN (11:15)
--- NOTE | 2019-10-02 13:01 | NUR ---
NURSE NOTES: Patient s/p 1 unit PRBC, no s/s of transfusion reaction noted. Dr. Ontiveros assessed patient at bedside, updated on patient's status. Patient to be discharged tomorrow.
--- NOTE | 2019-10-02 13:09 | Nephrology Progress Note ---
Assessment/Plan Assessment/Plan: A/P 1) Diabetes mellitus with diabetic nephropathy - low carb diet and ISS with accuchecks along with home regimen 2) CVA- Aphasia following cerebral infarction, old stable 3) Anemia in chronic kidney disease- Hgb 6.4, receiving blood tx - EPO and bld Tx - cslt GI due to abrupt drop 4) End stage renal disease- HD today then TTS 5) Volume Overload- HD with UF today Disposition- to arrange ECF Subjective Date patient seen: Oct 02, 2019 Time patient seen: 13:02 ROS Limited/Unobtainable: No Allergies: Coded Allergies: CODEINE (Verified Allergy, Mild, 06/16/14) OXYCODONE (Verified Allergy, Mild, 06/16/14) Uncoded Allergies: SULFA (Allergy, Unknown, 09/30/19) Subjective Patient receiving blood transfusion Objective Last 24 Hour Vital Signs Date Time Temp Pulse Resp B/P (MAP) Pulse Ox O2 Delivery O2 Flow Rate FiO2 10/02/19 12:39 161/92 (115) 10/02/19 12:12 178/72 10/02/19 12:00 Nasal Cannula 2.0 10/02/19 12:00 2.0 10/02/19 12:00 99.2 65 20 178/72 (107) 98 10/02/19 11:39 189/93 10/02/19 11:39 189/93 10/02/19 11:34 65 10/02/19 09:16 160/70 (100) 10/02/19 09:06 69 20 100 Nasal Cannula 2.0 28 10/02/19 09:03 100 Nasal Cannula 2.0 28 10/02/19 08:29 185/76 10/02/19 08:28 69 185/76 10/02/19 08:28 69 185/76 10/02/19 08:00 2.0 10/02/19 08:00 98.6 69 17 185/76 (112) 99 10/02/19 08:00 Nasal Cannula 2.0 10/02/19 07:54 68 10/02/19 06:07 98.0 62 18 150/78 (102) 96 10/02/19 06:02 170/65 10/02/19 06:02 170/65 10/02/19 04:00 98.5 61 18 137/88 (104) 96 10/02/19 04:00 2.0 10/02/19 04:00 Nasal Cannula 2.0 10/02/19 04:00 65 10/02/19 00:00 2.0 10/02/19 00:00 98.5 61 18 167/70 (102) 96 10/02/19 00:00 Nasal Cannula 2.0 10/02/19 00:00 62 10/01/19 23:19 142/68 10/01/19 21:57 161/57 10/01/19 21:00 61 139/67 10/01/19 20:11 95 Nasal Cannula 2.0 28 10/01/19 20:11 59 20 95 Nasal Cannula 2.0 28 10/01/19 20:00 98.5 61 18 149/64 (92) 95 10/01/19 20:00 Nasal Cannula 2.0 10/01/19 20:00 2.0 10/01/19 19:57 60 10/01/19 18:31 147/64 10/01/19 16:00 Nasal Cannula 2.0 10/01/19 16:00 2.0 10/01/19 16:00 98.4 61 16 146/62 (90) 94 10/01/19 15:31 61 Intake and Output 10/01/19 10/02/19 19:00 07:00 Intake Total 480 ml 6365 ml Balance 480 ml 6365 ml Intake Oral 480 ml 60 ml IV Total 55 ml Blood Product 250 ml Hemodialysis 6000 ml # Voids 3 # Bowel Movements 2 Laboratory Tests 10/01/19 18:45: White Blood Count 2.9#L, Red Blood Count 2.29L, Hemoglobin 6.4*L, Hematocrit 19.8L, Mean Corpuscular Volume 87, Mean Corpuscular Hemoglobin 28.0, Mean Corpuscular Hemoglobin Concent 32.3, Red Cell Distribution Width 16.5H, Platelet Count 189, Mean Platelet Volume 9.8, Neutrophils (%) (Auto) , Lymphocytes (%) (Auto) , Monocytes (%) (Auto) , Eosinophils (%) (Auto) , Basophils (%) (Auto) , Differential Total Cells Counted 100, Neutrophils % ( Manual) 63, Lymphocytes % (Manual) 31, Monocytes % (Manual) 5, Eosinophils % ( Manual) 1, Basophils % (Manual) 0, Band Neutrophils 0, Nucleated Red Blood Cells 2, Platelet Estimate Adequate, Platelet Morphology Normal, Polychromasia 1 +, Anisocytosis 1+, Sodium Level 136, Potassium Level 3.5, Chloride Level 97L, Carbon Dioxide Level 29, Anion Gap 10, Blood Urea Nitrogen 18, Creatinine 4.5H, Estimat Glomerular Filtration Rate 12.0, Glucose Level 148H, Calcium Level 9.2, Total Bilirubin 0.4, Aspartate Amino Transf (AST/SGOT) 17, Alanine Aminotransferase (ALT/SGPT) 17, Alkaline Phosphatase 99, Troponin I 0.013, Total Protein 6.7, Albumin 2.5L, Globulin 4.2, Albumin/Globulin Ratio 0.6L, Triglycerides Level 93, Cholesterol Level 163, LDL Cholesterol 75, HDL Cholesterol 54, Cholesterol/HDL Ratio 3.0L Height (Feet): 5 Height (Inches): 4.00 Weight (Pounds): 157 General Appearance: no apparent distress EENT: normal ENT inspection Neck: normal alignment, supple Cardiovascular: normal rate, regular rhythm Respiratory/Chest: lungs clear, normal breath sounds Abdomen: non tender, soft Edema: no edema noted Arm (L), no edema noted Arm (R), no edema noted Leg (L), no edema noted Leg (R), no edema noted Pedal (L), no edema noted Pedal (R), no edema noted Generalized Manjo Ontiveros MD Oct 02, 2019 13:09
--- NOTE | 2019-10-02 18:03 | NUR ---
NURSE NOTES: Dr. Torres at bedside, reported patient's status, unable to collect OB stool d/t no BM.
[2019-10-02] MEDS: Docusate 100mg cap ORAL SCH (18:05)
--- NOTE | 2019-10-02 19:20 | NUR ---
NURSE NOTES: pt report received from SHERRIE Rock RN. pt remains stable. pt is alert and oriented times 2. 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 pt is on 1 L NC, satting at 99%, no resp distress noted. pt bed is low, locked, armed, bed rails up times 3, call light within reach. will follow plan of care.
--- NOTE | 2019-10-02 19:42 | NUR ---
HAND-OFF: Report given to Brittaney Talbert RN. Patient s/p hemodialysis in stable condition.
[2019-10-02] MEDS: Dyna-Hex 2% Top Sol 2oz TOPIC SCH (20:00)
[2019-10-02] MEDS: Imdur 30mg tab ORAL SCH (21:00)
[2019-10-02] MEDS ORDERED: Miralax 17gm pkt ORAL SCH (21:00)
[2019-10-02] MEDS: cefTRIAXone 1 GM in D5W 55 ML IVPB SCH (22:02)
[2019-10-02] MEDS: Latanoprost 0.005% Opth 2.5ml Soln BOTH EYES SCH (22:03)
--- NOTE | 2019-10-02 22:30 | Consultation ---
DATE OF CONSULTATION: 10/02/2019 CONSULTING PHYSICIAN: Wade Torres M.D. CHIEF COMPLAINT: Anemia. HISTORY OF PRESENT ILLNESS: This is a very pleasant 64-year-old female with past medical history of end-stage renal disease, on hemodialysis, history of left mastectomy for cancer, history of CVA with expressive aphasia, history of diabetes, anemia, and hypertension, who was admitted to the hospital. She was found to be profoundly anemic, so GI consult was requested for evaluation. PAST MEDICAL HISTORY: Significant for: 1. History of breast cancer, status post right mastectomy. 2. End-stage renal disease, on hemodialysis. 3. History of CVA. 4. Aphasia. 5. Diabetes. 6. Anemia. 7. Hypertension. 8. Hypertensive heart disease. 9. CHF. 10. Diabetic neuropathy. 11. Hyperlipidemia. PAST SURGICAL HISTORY: The patient had mastectomy to right side and also had a hemodialysis catheter placement for dialysis. ALLERGIES: Sulfa and codeine. MEDICATIONS: Please see medication reconciliation list. SOCIAL HISTORY: The patient denies any tobacco, alcohol, or drug abuse. FAMILY HISTORY: Noncontributory. PHYSICAL EXAMINATION: VITAL SIGNS: Temperature 99.1, pulse , respirations 16, and blood pressure 123/49. HEENT: Normocephalic and atraumatic. Sclerae, pale. NECK: Supple. No obvious evidence of lymphadenopathy. CARDIOVASCULAR: Regular rate and rhythm. Plus S1 and S2. LUNGS: Clear to auscultation bilaterally diffusely based on the supine exam. ABDOMEN: Soft, nontender. No rebound. No guarding. No peritoneal sign. EXTREMITIES: No cyanosis, no clubbing, no edema. LABORATORY DATA: White count is 2.9, hemoglobin 6.4, and platelet count 189,000. BUN is 18, creatinine 4.5. ASSESSMENT AND PLAN: This is a 64-year-old female with profound anemia without any overt evidence of GI bleeding per nurses. No melena. No hematochezia. Actually, the patient has not had any bowel movement. Plan is to start the patient on Colace and MiraLAX, transfuse with hemodialysis, monitor H and H, send stool for OB. Plan to do GI procedure if the stool OB comes back positive. I want to thank Dr. Ontiveros for this kind referral. Wade Finn Torres DR: BON JOB#: [id number] CC: Manoj Ontiveros M.D.
[2019-10-03] VITALS: BP 124/59
--- NOTE | 2019-10-03 03:15 | Progress Note ---
DATE: 10/02/2019 CARDIOLOGY PROGRESS NOTE SUBJECTIVE: The patient is status post hemodialysis with ultrafiltration today. Blood pressure parameters remain elevated, but slightly improved. Monitored rhythm, sinus and sinus bradycardia. OBJECTIVE: LUNGS: Bilateral breath sounds. Few rales. CARDIAC: Regular rhythm and rate. Normal S1 and S2 with a fourth heart sound. ABDOMEN: Soft. EXTREMITIES: 1+ edema. IMPRESSION: 1. Hypertensive urgency. 2. Acute on chronic diastolic congestive heart failure. 3. End-stage renal disease. 4. Severe anemia. 5. Severe pulmonary hypertension. 6. Moderate to severe mitral and tricuspid regurgitation. 7. Sinus bradycardia PLAN: 1. Hemodialysis with ultrafiltration. 2. Packed red blood cell transfusions for hemoglobin less than 8. 3. Epogen and iron replacement. 4. Stool occult blood test. 5. Continue up-titrating and optimizing antihypertensive regimen. 6. Cardiac monitoring - observe for symptomatic bradycardia. Tian Dahl M.D. DR: Man JOB#: [id number] CC: DB
[2019-10-03 04:00] VITALS: BP 150/61
[2019-10-03 05:38] LABS: BASOPHILS % (AUTO) 1.2 % (0.0-2.0); EOSINOPHILS % (AUTO) 2.8 % (0.0-3.0); HEMATOCRIT 31.7 % (37.0-47.0); HEMOGLOBIN 10.7 G/DL (12.0-16.0); LYMPHOCYTES % (AUTO) 23.1 % (20.0-45.0); MEAN CORPUSCULAR VOLUME 86 FL (80-99); MONOCYTES % (AUTO) 11.1 % (1.0-10.0); NEUTROPHILS % (AUTO) 61.8 % (45.0-75.0); PLATELET COUNT 209 K/UL (150-450); RED CELL DISTRIBUTION WIDTH 14.1 % (11.6-14.8); WHITE BLOOD COUNT 6.4 K/UL (4.8-10.8)
[2019-10-03] MEDS: NovoLOG Insulin Flexpen SUBQ SCH ×4 (05:59→20:51)
[2019-10-03] MEDS: HydrALAZINE 50mg tab ORAL SCH ×3 (06:00→22:40)
--- NOTE | 2019-10-03 07:10 | NUR ---
NURSE NOTES: Received report from MAYRA Villagomez. The patient is resting on the bed without acute distress or shortness of breath. The patient's bed in the lowest position, call light in reach, and fall and aspiration precaution reinforced. Port-A-Cath on right chest intact and patent. L AV shunt intact. Will follow up the lab. Will continue plan of care.
--- NOTE | 2019-10-03 07:25 | NUR ---
HAND-OFF: Report given to LOC NUNEZ. Pt remains stable.
[2019-10-03 08:00] VITALS: BP 162/81
--- NOTE | 2019-10-03 08:13 | General Progress Note ---
Assessment/Plan Assessment/Plan: 1. History of breast cancer, status post right mastectomy. 2. End-stage renal disease, on hemodialysis. 3. History of CVA. 4. Aphasia. 5. Diabetes. 6. Anemia. 7. Hypertension. 8. Hypertensive heart disease. 9. CHF. 10. Diabetic neuropathy. 11. Hyperlipidemia s/p blood transfusion needs EGD and colonoscopy given her age, anemia and no prior h/o GI procedures D/W the patient and will plan for tomorrow Subjective ROS Limited/Unobtainable: Yes Allergies: Coded Allergies: CODEINE (Verified Allergy, Mild, 06/16/14) OXYCODONE (Verified Allergy, Mild, 06/16/14) Uncoded Allergies: SULFA (Allergy, Unknown, 09/30/19) Objective Last 24 Hour Vital Signs Date Time Temp Pulse Resp B/P (MAP) Pulse Ox O2 Delivery O2 Flow Rate FiO2 10/03/19 06:00 163/62 10/03/19 04:00 68 10/03/19 04:00 1.0 10/03/19 04:00 98.3 74 21 150/61 (90) 98 10/03/19 04:00 Nasal Cannula 1.0 10/03/19 00:00 1.0 10/03/19 00:00 62 10/03/19 00:00 98.5 62 21 124/59 (80) 99 10/03/19 00:00 Nasal Cannula 1.0 10/02/19 21:55 122/56 10/02/19 21:00 122/56 10/02/19 21:00 59 122/56 10/02/19 20:00 1.0 10/02/19 20:00 98.5 69 21 128/55 (79) 99 10/02/19 20:00 97 Nasal Cannula 2.0 28 10/02/19 20:00 Nasal Cannula 1.0 10/02/19 20:00 60 10/02/19 17:49 123/49 10/02/19 16:34 147/61 (89) 10/02/19 16:10 184/79 10/02/19 16:00 1.0 10/02/19 16:00 99.1 62 16 184/79 (114) 97 10/02/19 16:00 Nasal Cannula 1.0 10/02/19 15:39 57 10/02/19 12:39 161/92 (115) 10/02/19 12:12 178/72 10/02/19 12:00 Nasal Cannula 2.0 10/02/19 12:00 2.0 10/02/19 12:00 99.2 65 20 178/72 (107) 98 10/02/19 11:39 189/93 10/02/19 11:39 189/93 10/02/19 11:34 65 10/02/19 09:16 160/70 (100) 10/02/19 09:06 69 20 100 Nasal Cannula 2.0 28 10/02/19 09:03 100 Nasal Cannula 2.0 28 10/02/19 08:29 185/76 10/02/19 08:28 69 185/76 10/02/19 08:28 69 185/76 Intake and Output 10/02/19 10/03/19 19:00 07:00 Intake Total 2610 ml 55 ml Balance 2610 ml 55 ml Intake Oral 360 ml IV Total 55 ml Blood Product 250 ml Hemodialysis 2000 ml # Bowel Movements 1 Laboratory Tests 10/03/19 04:50: White Blood Count 6.4#, Red Blood Count 3.70L, Hemoglobin 10.7#L, Hematocrit 31.7#L, Mean Corpuscular Volume 86, Mean Corpuscular Hemoglobin 28.9, Mean Corpuscular Hemoglobin Concent 33.8, Red Cell Distribution Width 14.1, Platelet Count 209, Mean Platelet Volume 8.1, Neutrophils (%) (Auto) 61.8, Lymphocytes (% ) (Auto) 23.1, Monocytes (%) (Auto) 11.1H, Eosinophils (%) (Auto) 2.8, Basophils (%) (Auto) 1.2 Height (Feet): 5 Height (Inches): 4.00 Weight (Pounds): 159 General Appearance: alert EENT: PERRL/EOMI Neck: supple Cardiovascular: normal peripheral pulses, normal rate Respiratory/Chest: decreased breath sounds Abdomen: normal bowel sounds, non tender, soft Extremities: non-tender Wade Torres MD Oct 03, 2019 08:13
--- NOTE | 2019-10-03 08:51 | Nephrology Progress Note ---
Assessment/Plan Assessment/Plan: A/P 1) Diabetes mellitus with diabetic nephropathy - low carb diet and ISS with accuchecks along with home regimen 2) CVA- Aphasia following cerebral infarction, old stable 3) Anemia in chronic kidney disease- Hgb up to 10.7 post transfusion. Appreciate GI evaluation - EPO and bld Tx 4) End stage renal disease- TTS 5) Volume Overload- resolved Disposition- DC to SNF today if cleared by GI Subjective Date patient seen: Oct 03, 2019 Time patient seen: 08:49 ROS Limited/Unobtainable: No Allergies: Coded Allergies: CODEINE (Verified Allergy, Mild, 06/16/14) OXYCODONE (Verified Allergy, Mild, 06/16/14) Uncoded Allergies: SULFA (Allergy, Unknown, 09/30/19) Subjective Patient received blood tx Objective Last 24 Hour Vital Signs Date Time Temp Pulse Resp B/P (MAP) Pulse Ox O2 Delivery O2 Flow Rate FiO2 10/03/19 07:00 98 Room Air 21 10/03/19 06:00 163/62 10/03/19 04:00 68 10/03/19 04:00 1.0 10/03/19 04:00 98.3 74 21 150/61 (90) 98 10/03/19 04:00 Nasal Cannula 1.0 10/03/19 00:00 1.0 10/03/19 00:00 62 10/03/19 00:00 98.5 62 21 124/59 (80) 99 10/03/19 00:00 Nasal Cannula 1.0 10/02/19 21:55 122/56 10/02/19 21:00 122/56 10/02/19 21:00 59 122/56 10/02/19 20:00 1.0 10/02/19 20:00 98.5 69 21 128/55 (79) 99 10/02/19 20:00 97 Nasal Cannula 2.0 28 10/02/19 20:00 Nasal Cannula 1.0 10/02/19 20:00 60 10/02/19 17:49 123/49 10/02/19 16:34 147/61 (89) 10/02/19 16:10 184/79 10/02/19 16:00 1.0 10/02/19 16:00 99.1 62 16 184/79 (114) 97 10/02/19 16:00 Nasal Cannula 1.0 10/02/19 15:39 57 10/02/19 12:39 161/92 (115) 10/02/19 12:12 178/72 10/02/19 12:00 Nasal Cannula 2.0 10/02/19 12:00 2.0 10/02/19 12:00 99.2 65 20 178/72 (107) 98 10/02/19 11:39 189/93 10/02/19 11:39 189/93 10/02/19 11:34 65 10/02/19 09:16 160/70 (100) 10/02/19 09:06 69 20 100 Nasal Cannula 2.0 28 10/02/19 09:03 100 Nasal Cannula 2.0 28 Intake and Output 10/02/19 10/03/19 19:00 07:00 Intake Total 2610 ml 55 ml Balance 2610 ml 55 ml Intake Oral 360 ml IV Total 55 ml Blood Product 250 ml Hemodialysis 2000 ml # Bowel Movements 1 Laboratory Tests 10/03/19 04:50: White Blood Count 6.4#, Red Blood Count 3.70L, Hemoglobin 10.7#L, Hematocrit 31.7#L, Mean Corpuscular Volume 86, Mean Corpuscular Hemoglobin 28.9, Mean Corpuscular Hemoglobin Concent 33.8, Red Cell Distribution Width 14.1, Platelet Count 209, Mean Platelet Volume 8.1, Neutrophils (%) (Auto) 61.8, Lymphocytes (% ) (Auto) 23.1, Monocytes (%) (Auto) 11.1H, Eosinophils (%) (Auto) 2.8, Basophils (%) (Auto) 1.2 Height (Feet): 5 Height (Inches): 4.00 Weight (Pounds): 159 General Appearance: no apparent distress EENT: normal ENT inspection Neck: normal alignment, supple Cardiovascular: normal rate Respiratory/Chest: rhonchi - bilaterally Abdomen: non tender, soft Edema: no edema noted Arm (L), no edema noted Arm (R), no edema noted Leg (L), no edema noted Leg (R), no edema noted Pedal (L), no edema noted Pedal (R), no edema noted Generalized Manoj Ontiveros MD Oct 03, 2019 08:51
[2019-10-03] MEDS: Aspirin EC 81mg tab ORAL SCH (09:00)
[2019-10-03] MEDS: Heparin 5000 units/ml inj SUBQ SCH ×2 (09:00→20:46)
[2019-10-03] MEDS ORDERED: Epogen (for ESRD on dialysis) SUBQ SCH (09:00)
--- NOTE | 2019-10-03 09:30 | NUR ---
NURSE NOTES: Dr. Ontiveros ordered the patient to be transferred to med/surg unit. Notified to the charge nurse. Will continue plan of care until transfer.
[2019-10-03] MEDS: Docusate 100mg cap ORAL SCH ×2 (09:40→18:54)
[2019-10-03] MEDS: Carvedilol 12.5mg tab ORAL SCH ×2 (09:41→21:00)
[2019-10-03] MEDS: Losartan 50mg tab ORAL SCH (09:41)
[2019-10-03] MEDS: Thiamine 100mg tab ORAL SCH (09:43)
[2019-10-03 12:00] VITALS: BP 118/55
--- NOTE | 2019-10-03 12:00 | NUR ---
NURSE NOTES: The patient is stable without acute distress or shortness of breath. The patient is scheduled for EGD and coloscopy on 10/04/2019. Will continue plan of care.
--- NOTE | 2019-10-03 14:30 | NUR ---
NURSE NOTES: The patient is stable without acute distress or shortness of breath. Will continue plan of care.
--- NOTE | 2019-10-03 15:30 | NUR ---
NURSE NOTES: Paged Dr. Ontiveros and Dr. Torres regarding order of Nulytely 4L as the patient is risk of fluid overload. Will clarify with Dr. Torres and Dr. Ontiveros. Will hold administration until clarification made.
--- NOTE | 2019-10-03 15:53 | NUR ---
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 98.8 HR 77 RR 19 B/P 184/76 2L NC O2 SAT @ 98% H/H 7.0/20.6 BUN 25 CR 5.8 ALK PHOS 47 BNP 06602 CXR= CARDIOMEGALY IS: APRESOLINE IV NITRO BID TOPICAL ADMITTED TO STEP DOWN @ 1715 STEP DOWN STATUS DCP RETURN TO [facility]
[2019-10-03 16:00] VITALS: BP 145/69
[2019-10-03] MEDS ORDERED: Nulytely 4L ORAL ONE (16:00)
--- NOTE | 2019-10-03 16:00 | NUR ---
NURSE NOTES: Received call back from Dr. Ontiveros. Per deborah Jackson to administer Nulytely 4L.
--- NOTE | 2019-10-03 17:20 | NUR ---
TRANSFER TO FLOOR: Patient transferred to [facility] with two RNs with med/surg transfer order by Dr. Ontiveros. Report given to MAYRA Funez who is a receiving nurse. the patient's belongings checked with the patient and two nurses and signed by two nurse. The patient's bed in the lowest position, call light in reach, and fall and aspiration precaution reinforced. Port-A-Cath on R upper chest intact. The patient is scheduled for EGD and colonoscopy on 10/04/2019. Asked the patient to follow up for next HD schedule. Endorsed plan of care. Addendum: 10/03/19 at 1725 by Jamil Aden RN Skin is intact.
--- NOTE | 2019-10-03 17:21 | NUR ---
NURSE NOTES: Received patient from Adela NUNEZ on bed awake. Alert and oriented x 2. No SOB or acute distress. Hooked to O2 via nasal cannula at 1LPM. Right upper chest portacath intact, dressing intact. Left AV shunt intact. On left and right arm precaution, BP to be taken on her calves. Skin checked. Belongings accounted for. For EGD and colonoscopy tomorrow, consent in the chart. For NPO post midnight. For dialysis tomorrow after colonoscopy as per Dr Ontiveros. HOB elevated. Bed locked in lowest position. Call light within reach. Will continue plan of care.
[2019-10-03] MEDS ORDERED: Acetaminophen 500mg (ES) tab ORAL PRN (18:00)
--- NOTE | 2019-10-03 19:30 | NUR ---
NURSE NOTES: Patient awake and verbally responsive to let her needs known, but oriented to self at this time. Breathing unlabored on 1L O2 via NC without distress. No complaints of pain or discomfort noted at this time. Left AV shunt intact with thrill and bruit present. Right Upper Chest Port-a-cath intact and patent with clean dressing. Patient on Nulytely for bowel prep. Bed placed at the lowest with alarm, brake, and siderails up for safety. Call light placed within reach and reeducated the patient to use. Will continue to monitor.
[2019-10-03 20:00] VITALS: BP 142/61
[2019-10-03] MEDS ORDERED: Dyna-Hex 2% Top Sol 2oz TOPIC SCH (20:00)
--- NOTE | 2019-10-03 20:01 | NUR ---
HAND-OFF: Report given to minsu.
[2019-10-03] MEDS ORDERED: Miralax 17gm pkt ORAL SCH (21:00)
[2019-10-03] MEDS ORDERED: Imdur 30mg tab ORAL SCH (21:00)
[2019-10-03] MEDS ORDERED: Epoetin Alfa-EPBX(ESRD on dialysis)10,000 unit/ml vial SUBQ SCH ×2 (21:00)
[2019-10-03] MEDS ORDERED: Latanoprost 0.005% Opth 2.5ml Soln BOTH EYES SCH (21:00)
--- NOTE | 2019-10-03 22:12 | NUR ---
NURSE NOTES: Reached Dr. Torres to inform that patient hasn't had any bowel movement after starting nulytely bowel prep for her scheduled egd/colonoscopy tomorrow. Left a message for any new orders. Waiting for a call back.
[2019-10-04] VITALS (8 sets, daily range): BP systolic 91–150; BP diastolic 31–75
--- NOTE | 2019-10-04 | NUR ---
NURSE NOTES: Patient refused to finish 600 mL of Nulytely. Explained risk, benefit, and reason for taking nulytely, but patient continues to refuse. Will continue to monitor.
--- NOTE | 2019-10-04 00:30 | NUR ---
NURSE NOTES: Patient had a first bowel movement after the nulytely at midnight. Collected the stool sample and sent to lab for OBStool.
--- NOTE | 2019-10-04 03:24 | NUR ---
NURSE NOTES: Spoke with Betty from [facility] dialysis for HD scheduled for 10/04/19 routine after the colonoscopy/EGD.
--- NOTE | 2019-10-04 05:52 | NUR ---
NURSE NOTES: Dr. Torres called with order for tap enema. Confirmed and read back. Will carry out the order as given.
[2019-10-04] MEDS: HydrALAZINE 50mg tab ORAL SCH ×2 (06:00→15:58)
[2019-10-04] MEDS: NovoLOG Insulin Flexpen SUBQ SCH ×3 (06:10→16:30)
--- NOTE | 2019-10-04 06:15 | Progress Note ---
DATE: 10/03/2019 CARDIOLOGY PROGRESS NOTE SUBJECTIVE: The patient with less shortness of breath. She is status post packed red blood cell transfusion. She has had successive ultrafiltration and hemodialysis sessions. PHYSICAL EXAMINATION: VITAL SIGNS: Blood pressure 163/62, pulse 68, and respiratory rate 21. 122/56 blood pressure. LUNGS: Good breath sounds. No wheezing or rales. CARDIAC: Regular rhythm and rate. Normal S1 and S2 with a 1/6 systolic murmur at lower left sternal border. ABDOMEN: Soft. EXTREMITIES: No edema. LABORATORY DATA: White count 6.4 and hemoglobin 10.7. IMPRESSION: 1. Acute myocardial ischemia, resolved. 2. Acute on chronic diastolic congestive heart failure, now compensated clinically. 3. End-stage renal disease, on hemodialysis three times a week. 4. Severe pulmonary hypertension with symptoms improved on advance antihypertensive therapy. 5. Hypertensive urgency, resolved. 6. Hypertensive heart disease with labile blood pressure, on adequate therapy. 7. Anemia, rule out GI blood loss. PLAN: 1. No change at this time with regard to cardiovascular regimen. 2. Continue to monitor clinical parameters. 3. Continue hemodialysis with ultrafiltration for volume management. 4. Await stool occult blood testing. 5. GI workup. 6. Plan for definitive signs of bleeding only at this time. Tian Dahl M.D. DR: Man JOB#: [id number] CC:
--- NOTE | 2019-10-04 06:25 | NUR ---
NURSE NOTES: Provided tap water enema x 1. Patient tolerated well. Will continue to monitor.
[2019-10-04 06:34] LABS: BASOPHILS % (AUTO) 0.8 % (0.0-2.0); EOSINOPHILS % (AUTO) 2.3 % (0.0-3.0); HEMATOCRIT 35.4 % (37.0-47.0); HEMOGLOBIN 11.8 G/DL (12.0-16.0); MEAN CORPUSCULAR VOLUME 87 FL (80-99); MONOCYTES % (AUTO) 10.8 % (1.0-10.0); NEUTROPHILS % (AUTO) 62.1 % (45.0-75.0); PLATELET COUNT 249 K/UL (150-450); RED BLOOD COUNT 4.09 M/UL (4.20-5.40); RED CELL DISTRIBUTION WIDTH 14.1 % (11.6-14.8); WHITE BLOOD COUNT 5.8 K/UL (4.8-10.8)
--- NOTE | 2019-10-04 07:42 | NUR ---
NURSE NOTES: Received patient in bed asleep. No SOB or acute distress. O2 via nasal cannula intact. For EGD and colonoscopy today, maintained on NPO except meds and ice chips. Spoke to RT to do sputum induction. HOB elevated. Bed locked in lowest position. Call light within reach. Will continue plan of care. Addendum: 10/04/19 at 0757 by Dee Dee Covarrubias RN Right upper chest portacath intact. Left AV shunt dressing intact. Will contact MD today for order where to draw blood.
--- NOTE | 2019-10-04 07:42 | NUR ---
HAND-OFF: Report given to MAYRA Funez. Plan of care endorsed.
[2019-10-04 07:59] LABS: ANION GAP 18 mmol/L (5-15); BLOOD UREA NITROGEN 42 mg/dL (7-18); CALCIUM 10.6 MG/DL (8.5-10.1); CARBON DIOXIDE 27 MMOL/L (21-32); CHLORIDE 99 MMOL/L (98-107); CREATININE 7.3 MG/DL (0.55-1.30); POTASSIUM 4.4 MMOL/L (3.5-5.1); SODIUM 143 MMOL/L (136-145)
[2019-10-04] MEDS: Heparin 5000 units/ml inj SUBQ SCH (09:00)
[2019-10-04] MEDS: Carvedilol 12.5mg tab ORAL SCH (09:00)
[2019-10-04] MEDS: Docusate 100mg cap ORAL SCH ×2 (09:00→17:14)
[2019-10-04] MEDS ORDERED: Losartan 50mg tab ORAL SCH (09:00)
[2019-10-04] MEDS ORDERED: Thiamine 100mg tab ORAL SCH (09:00)
[2019-10-04] MEDS ORDERED: Aspirin EC 81mg tab ORAL SCH (09:00)
--- NOTE | 2019-10-04 10:27 | Nephrology Progress Note ---
Assessment/Plan Assessment/Plan: A/P 1) Diabetes mellitus with diabetic nephropathy - low carb diet and ISS - accuchecks along with home regimen 2) CVA- Aphasia following cerebral infarction, old stable 3) Anemia in chronic kidney disease- Hgb up to 10.7 post transfusion. Appreciate GI evaluation - EPO and bld Tx DC once cleared by GI 4) End stage renal disease- TTS 5) Volume Overload- resolved Disposition- DC to SNF today if cleared by GI Subjective Date patient seen: Oct 04, 2019 Time patient seen: 10:25 ROS Limited/Unobtainable: No Allergies: Coded Allergies: CODEINE (Verified Allergy, Mild, 06/16/14) OXYCODONE (Verified Allergy, Mild, 06/16/14) Uncoded Allergies: SULFA (Allergy, Unknown, 09/30/19) Subjective Patient tolerating dialysis Objective Last 24 Hour Vital Signs Date Time Temp Pulse Resp B/P (MAP) Pulse Ox O2 Delivery O2 Flow Rate FiO2 10/04/19 07:20 99 Nasal Cannula 1.0 24 10/04/19 06:00 119/80 10/04/19 04:00 1.0 10/04/19 04:00 Nasal Cannula 1.0 10/04/19 04:00 98.4 64 18 132/75 (94) 96 10/04/19 00:00 98.0 62 18 150/58 (88) 96 10/04/19 00:00 Nasal Cannula 1.0 10/04/19 00:00 1.0 10/03/19 22:40 137/60 10/03/19 21:00 131/57 10/03/19 21:00 58 131/57 10/03/19 20:30 97 Room Air 21 10/03/19 20:00 98.3 63 18 142/61 (88) 94 10/03/19 20:00 Nasal Cannula 1.0 10/03/19 20:00 1.0 10/03/19 16:00 98.8 63 18 145/69 (94) 98 10/03/19 16:00 63 10/03/19 16:00 Nasal Cannula 1.0 10/03/19 16:00 1.0 10/03/19 16:00 1.0 10/03/19 16:00 Nasal Cannula 1.0 10/03/19 14:00 118/55 10/03/19 12:00 65 3/9/20 12:00 1.0 10/03/19 12:00 Nasal Cannula 1.0 10/03/19 12:00 98.2 65 18 118/55 (76) 100 Intake and Output 10/03/19 10/04/19 19:00 07:00 Intake Total 900 ml Balance 900 ml Intake Oral 900 ml # Bowel Movements 2 Laboratory Tests 10/04/19 00:00: Stool Occult Blood [Pending] 10/04/19 06:00: White Blood Count 5.8, Red Blood Count 4.09L, Hemoglobin 11.8L, Hematocrit 35.4L , Mean Corpuscular Volume 87, Mean Corpuscular Hemoglobin 28.8, Mean Corpuscular Hemoglobin Concent 33.3, Red Cell Distribution Width 14.1, Platelet Count 249, Mean Platelet Volume 7.3, Neutrophils (%) (Auto) 62.1, Lymphocytes (% ) (Auto) 24.0, Monocytes (%) (Auto) 10.8H, Eosinophils (%) (Auto) 2.3, Basophils (%) (Auto) 0.8, Sodium Level 143, Potassium Level 4.4, Chloride Level 99, Carbon Dioxide Level 27, Anion Gap 18H, Blood Urea Nitrogen 42H, Creatinine 7.3H, Estimat Glomerular Filtration Rate 6.8, Glucose Level 161H, Calcium Level 10.6H Height (Feet): 5 Height (Inches): 4.00 Weight (Pounds): 131 General Appearance: no apparent distress, alert EENT: normal ENT inspection Neck: normal alignment, supple Cardiovascular: normal rate, regular rhythm Respiratory/Chest: lungs clear, normal breath sounds Abdomen: non tender, soft Edema: no edema noted Arm (L), no edema noted Arm (R), no edema noted Leg (L), no edema noted Leg (R), no edema noted Pedal (L), no edema noted Pedal (R), no edema noted Generalized Manoj Ontiveros MD Oct 04, 2019 10:27
--- NOTE | 2019-10-04 11:00 | NUR ---
NURSE NOTES: Dialysis started around 8am, Dr Ontiveros made aware, said it was ok. Dr Torres made aware of ongoing dialysis, also informed that patient hasn't had bowel movement this morning shift, gave orders for tap water enema.
--- NOTE | 2019-10-04 12:25 | Anethesia Preoperative Eval ---
Anesthesia Pre-op PMH/ROS General Date of Evaluation: Oct 04, 2019 Time of Evaluation: 12:22 Anesthesiologist: jesus ASA Score: ASA 3 Mallampati Score Class I : Soft palate, uvula, fauces, pillars visible Class II: Soft palate, uvula, fauces visible Class III: Soft palate, base of uvula visible Class IV: Only hard plate visible Mallampati Classification: Class II Surgeon: dang Surgical Procedure: egd/colonoscopy Anesthesia History: none Social History: smoking - nonsmoker Family History: no anesthesia problems Allergies: Coded Allergies: CODEINE (Verified Allergy, Mild, 06/16/14) OXYCODONE (Verified Allergy, Mild, 06/16/14) Uncoded Allergies: SULFA (Allergy, Unknown, 09/30/19) Medications: see eMAR Patient NPO?: Yes Past Medical History Cardiovascular: Reports: HTN, other - hypercholesterolemia Pulmonary: Reports: other - bipap, pulmonary edema Gastrointestinal/Genitourinary: Reports: ESRD - on hd Neurologic/Psychiatric: Reports: CVA Endocrine: Reports: DM HEENT: Reports: cataract (R) Hematology/Immune: Reports: other - breast cancer Anesthesia Pre-op Phys. Exam Physician Exam Last Vital Signs Date Time Temp Pulse Resp B/P (MAP) Pulse Ox O2 Delivery O2 Flow Rate FiO2 10/04/19 11:51 97.5 71 12 111/54 (73) 100 10/04/19 08:00 Nasal Cannula 1.0 10/04/19 07:20 24 Constitutional: NAD Neurologic: CN 2-12 intact Cardiovascular: RRR Respiratory: CTA Gastrointestinal: S/NT/ND Airway Exam Mallampati Score: Class II MO: limited Neck: flexible TMD: 2fb ROM: limited Anesthesia Pre-op A/P Labs Hematology Test 10/04/19 06:00 White Blood Count 5.8 K/UL (4.8-10.8) Red Blood Count 4.09 M/UL (4.20-5.40) L Hemoglobin 11.8 G/DL (12.0-16.0) L Hematocrit 35.4 % (37.0-47.0) L Mean Corpuscular Volume 87 FL (80-99) Mean Corpuscular Hemoglobin 28.8 PG (27.0-31.0) Mean Corpuscular Hemoglobin Concent 33.3 G/DL (32.0-36.0) Red Cell Distribution Width 14.1 % (11.6-14.8) Platelet Count 249 K/UL (150-450) Mean Platelet Volume 7.3 FL (6.5-10.1) Neutrophils (%) (Auto) 62.1 % (45.0-75.0) Lymphocytes (%) (Auto) 24.0 % (20.0-45.0) Monocytes (%) (Auto) 10.8 % (1.0-10.0) H Eosinophils (%) (Auto) 2.3 % (0.0-3.0) Basophils (%) (Auto) 0.8 % (0.0-2.0) Chemistry Test 10/04/19 06:00 Sodium Level 143 MMOL/L (136-145) Potassium Level 4.4 MMOL/L (3.5-5.1) Chloride Level 99 MMOL/L (98-107) Carbon Dioxide Level 27 MMOL/L (21-32) Anion Gap 18 mmol/L (5-15) H Blood Urea Nitrogen 42 mg/dL (7-18) H Creatinine 7.3 MG/DL (0.55-1.30) H Estimat Glomerular Filtration Rate 6.8 mL/min (>60) Glucose Level 161 MG/DL (74-106) H Calcium Level 10.6 MG/DL (8.5-10.1) H Risk Assessment & Plan Assessment: asa3 Plan: mac Status Change Before Surgery: No Pre-Antibiotics Drug: Jeanne Nye MD Oct 04, 2019 12:25
--- NOTE | 2019-10-04 12:55 | Pre-Procedure Note/Attestation ---
Pre-Procedure Note/Attestation Complete Prior to Procedure Planned Procedure: not applicable Procedure Narrative: esophagogastroduodenoscopy and colonoscopy Indications for Procedure Pre-Operative Diagnosis: Anemia Attestation I attest that I discussed the nature of the procedure; its benefits; risks and complications; and alternatives (and the risks and benefits of such alternatives ), prior to the procedure, with the patient (or the patient's legal counter sales representative). I attest that, if there was a reasonable possibility of needing a blood transfusion, the patient (or the patient's legal counter sales representative) was given the [facility] standardized written summary, pursuant to the Baudilio Shahzad Blood Safety Act ([place] Health and Safety Code # 1645, as amended). I attest that I re-evaluated the patient just prior to the surgery and that there has been no change in the patient's H&P, except as documented below: Wade Torres MD Oct 04, 2019 12:55
[2019-10-04] MEDS ORDERED: Propofol 200mg/20ml IV ONE (13:00)
[2019-10-04] MEDS ORDERED: Lidocaine 1% MPF 10mg/ml 5ml ONE (13:00)
--- NOTE | 2019-10-04 13:00 | NUR ---
NURSE NOTES: 2L taken out during dialysis. BP 119/60.
--- NOTE | 2019-10-04 13:06 | NUR ---
NURSE NOTES: Patient taken down for EGD colonoscopy as per Dr Torres, aware that bowel movement may still not be clear. RN only observed one bowel movement during this shift, color is light brown with some particulates.
[2019-10-04] MEDS ORDERED: NS 500ML IVPB ONE (13:10)
--- NOTE | 2019-10-04 13:30 | Endoscopy Procedure Note ---
Endoscopy Procedure Note General Indication for Procedure: anemia Procedures Performed: EGD Operative Findings/Diagnosis: duodenal polyp Specimen: yes Pt Tolerated Procedure Well: Yes Estimated Blood Loss: none Anesthesia Anesthesiologist: neli Anesthesia: MAC Inserted Devices Implant(s) used?: No GI Core Measures 50 yrs or older w/o bx or poly: Not Applicable 10yrs. F/U recommended: Not Applicable Wade Torres MD Oct 04, 2019 13:30
[2019-10-04] MEDS ORDERED: Midazolam 2mg/2ml Inj IVP PRN (13:45)
[2019-10-04] MEDS ORDERED: DiphenhydrAMINE 50mg/ml Inj IVP PRN (13:45)
[2019-10-04] MEDS ORDERED: Atropine Inj 1mg/10ml Syr IV PRN (13:45)
[2019-10-04] MEDS ORDERED: fentaNYL 100 mcg/2 mL IV PRN (13:45)
--- NOTE | 2019-10-04 14:04 | Immediate Post-Op Evaluation ---
Immediate Post-Op Evalulation Immediate Post-Op Evalulation Procedure: egd/colonoscopy w/bx Date of Evaluation: Oct 04, 2019 Time of Evaluation: 14:04 IV Fluids: 175ml 0.9ns Blood Products: none Estimated Blood Loss: negligible Blood Pressure Systolic: 91 Blood Pressure Diastolic: 31 Pulse Rate: 69 Respiratory Rate: 18 O2 Sat by Pulse Oximetry: 100 Temperature (Fahrenheit): 97.4 Pain Score (1-10): 0 Nausea: No Vomiting: No Complications none Patient Status: awake, reacts, patent Hydration Status: adequate Drug: Jeanne Nye MD Oct 04, 2019 14:04
--- NOTE | 2019-10-04 14:07 | 48 Hour Post Anesthesia Eval ---
Post Anesthesia Evaluation Procedure: egd/colonoscopy w/bx Date of Evaluation: Oct 04, 2019 Time of Evaluation: 14:06 Blood Pressure Systolic: 101 0: 45 Pulse Rate: 69 Respiratory Rate: 18 Temperature (Fahrenheit): 97.4 O2 Sat by Pulse Oximetry: 100 Airway: patent Nausea: No Vomiting: No Pain Intensity: 0 Hydration Status: adequate Cardiopulmonary Status: stable Mental Status/LOC: patient returned to baseline Post-Anesthesia Complications: none Follow-up care needed: N/A Jeanne Tapia MD Oct 04, 2019 14:07
--- NOTE | 2019-10-04 15:20 | Discharge Instructions ---
Discharge Instructions Discharge Instructions Services at Discharge: day care Diet: renal (80g protein, 2GM) Resume Normal Activity?: Yes Activity: light activity Follow Up Orders Follow up with SNF primary For Congestive Heart Failure Reminder Report to your physician any weight gain of 5 pounds or more in one week. Manoj Ontiveros MD Oct 04, 2019 15:20
--- NOTE | 2019-10-04 15:45 | NUR ---
DISCHARGE PLANNING PATIENT REFERRED AND ACCEPTED BACK PER NURA DUFFY [place] [address] [place] [address] P: [phone] RM 22-A SKILLED BLS AMBULANCE TRANSPORTATION SCHEDULED WITH [facility] @ EXT 2902 WITH ETA @ 1800 PM PER TRUPTI CHARGE NURSE SAUL LR
--- NOTE | 2019-10-04 17:12 | NUR ---
CHARGE NURSE NOTE: Hepatitis B surface AB positive. Dr. Ontiveros noified. He gave a permission to discharge patient to SNF.
--- NOTE | 2019-10-04 18:21 | NUR ---
NURSE NOTES: MRSA swab sent to lab.
--- NOTE | 2019-10-04 19:45 | NUR ---
NURSE NOTES: Patient discharged in stable condition to [facility], report given earlier to Dayna. Belongings accounted for. No new skin issues noted. Transported by ambulance personnel.
--- NOTE | 2019-10-04 19:45 | NUR ---
HAND-OFF: Report given to minsu.
--- NOTE | 2019-10-04 20:00 | Procedure Note ---
DATE OF PROCEDURE: 10/04/2019 SURGEON: Wade Torres M.D. PROCEDURE: Upper endoscopy with snare polypectomy and biopsy and colonoscopy. ANESTHESIA: Per Dr. Fontenot. INSTRUMENT: Olympus adult flexible upper endoscope and colonoscope. INDICATION: Anemia. REASON FOR PROCEDURE: The procedure, risks, benefits, and possible consequences, including hemorrhage, aspiration, perforation and infection, and alternative treatments, were explained to the patient/legal guardian by Dr. Wade Torres and the patient/legal guardian understood and accepted these risks. DESCRIPTION OF PROCEDURE: After informed consent was obtained and the patient was adequately sedated, Olympus upper endoscope was advanced from mouth into the second portion of duodenum and retroflexion was performed in the stomach. The patient had evidence of distal esophageal ring. In the stomach, there was diffuse gastritis. Random biopsy from antrum was obtained to rule out H. pylori infection. In the duodenal bulb, there was a large polyp measured roughly about 1.4 cm in size. This polyp was removed with a hot snare polypectomy technique, but unfortunate by the time we tried to get a Noriega Net around it, polyp moved into the third portion of the duodenum and we could not reach it to retrieve it. It seems that there might be another polyp in that area, but we could not see it again when we went back in. At this time, the upper endoscope was retrieved. The patient was turned over for colonoscopy. First, rectal exam was performed, which was positive for internal hemorrhoids, then the scope was advanced from the rectum into the cecum. Quality of prep was poor. I would say 50% of the colonic mucosa was not examined given this prep. There was no evidence of any obvious bleeding at this time. No mass, no obvious polyp, but again this is limited study. The patient tolerated procedure very well without complication. SUMMARY OF FINDINGS: 1. Distal esophageal ring. 2. Gastritis, status post biopsy. 3. A 1.4 cm duodenal polyp, status post polypectomy, could not retrieve the polyp and we moved down to the third portion of duodenum. 4. Poor colonic prep. 5. Internal hemorrhoid. RECOMMENDATIONS: Follow up pathology. The patient will need a repeat colonoscopy as an outpatient with a better prep. The patient also would benefit from repeat endoscopy to evaluate for site of polypectomy and also to see, evaluate for another polyp that might be there. Wade Torres M.D. DR: ROSA ELENA JOB#: [id number] CC:
--- NOTE | 2019-10-05 01:15 | Progress Note ---
DATE: 10/04/2019 CARDIOLOGY PROGRESS NOTE SUBJECTIVE: Panendoscopy was completed. Hemorrhoid was seen. Duodenal polyp, gastritis, and esophageal ring were noted. No active bleeding. OBJECTIVE: VITAL SIGNS: The patient's blood pressure was quite labile today, 101/39 to 190/98, heart rate 70, respiratory rate 18, and afebrile. LUNGS: Clear. ABDOMEN: Slightly distended, but soft. CARDIAC: Regular rhythm and rate. Normal S1, S2 with a fourth heart sound. EXTREMITIES: With no edema. IMPRESSION: 1. Hypertensive urgency partly due to pain, partly due to noncompliance, now improved. 2. Acute myocardial ischemia, resolved. 3. Acute on chronic diastolic congestive heart failure, compensated. 4. End-stage renal disease, on hemodialysis. 5. Severe pulmonary hypertension. 6. Anemia, most predominantly due to chronic kidney disease. PLAN: 1. Transfer to shelter facility on current cardiovascular regimen. 2. Encourage compliance with diet. 3. Hemodialysis and ultrafiltration sessions and medications. 4. Symptom guided pain control. 5. PRN antihypertensives for blood pressure spikes. Tian Dahl M.D. DR: EDILIA JOB#: [id number] CC:
--- NOTE | 2019-10-26 13:22 | Discharge Summary ---
Discharge Summary Discharge Summary _ DATE OF ADMISSION: 09/30/2019 DATE OF DISCHARGE: 10/04/2019 DISCHARGED BY: Dr. Stone REASON FOR ADMISSION: 64 years old female with past medical history of end-stage renal disease, on hemodialysis, history of CVA with expressive aphasia, diabetes mellitus, hypertension, anemia, history of breast cancer, status post right mastectomy, resident of halfway facility, admitted with shortness of breath , congestive heart failure and possible infiltrate. Upon evaluation patient was hypertensive with blood pressure 180/74. Laboratory work-up revealed no leukocytosis, hemoglobin 7, hematocrit 20.6. BUN 25, creatinine 5.8, consistent with known history of end-stage renal disease. Glucose 119. Pro BNP 34111. Troponin negative. EKG revealed sinus rhythm , no acute ischemic changes. Chest x-ray demonstrated cardiomegaly. Bilateral interstitial and airspace disease, likely pulmonary edema, infiltrates also possible. Bilateral right greater than left pleural effusion. Patient admitted for further management. CONSULTANTS: health and physical education teacher Dr. Dahl GI specialist Dr. Torres [facility]: Patient started on hemodialysis with ultrafiltration with close monitoring of volumes , renal parameters and electrolytes. Patient started on empiric antibiotics. Echocardiogram demonstrated preserved ejection fraction of 60% with moderate left ventricular hypertrophy. Right ventricular systolic pressure of 66 consistent with severe pulmonary hypertension. Moderate to severe mitral and tricuspid regurgitation. Antihypertensive and anti-failure regimens were maximized. Antiplatelet therapy continued. Statin continued for LDL goal less than 70. Insulin dosing was titrated. Topical nitrates provided for symptomatic relief of shortness of breath due to volume overload. DVT prophylaxis provided. Supplemental oxygen provided as needed to keep oximetry above 92%. Pulmonary toilet with bronchodilator provided as needed. DVT prophylaxis provided. Patient received short course of 3 days of antibiotics. Patient remained afebrile , no leukocytosis. Low clinical suspicion for pneumonia. Antibiotic stopped. Blood cultures were negative. The next day hemoglobin down to 6.4, hematocrit 19.8. Patient received 2 units of packed red blood cells during hemodialysis. Patient started on Epogen. Prior to discharge hemoglobin 11.8 hematocrit 25.4. Stool for occult blood was negative. Patient undergone upper endoscopy with snare polypectomy and biopsy and colonoscopy , which revealed gastritis , status post biopsy, duodenal polyp , status post polypectomy, internal hemorrhoids and poor colonic preparation. Pathology revealed benign antral mucosa with no significant histopathological abnormality. No evidence of H. pylori. No evidence of intestinal metaplasia, dysplasia or malignancy. Of note 1.4 cm duodenal polyp status post polypectomy could not be retrieved and GI specialist moved down to the third portion of duodenum. GI prophylaxis provided. Patient was recommended to repeat colonoscopy as outpatient with better preparation. Patient will also benefit to repeat endoscopy to evaluate for site of polypectomy . Patient clinically stabilized and was ready for discharge back to halfway facility for continuation of care. Blood pressure s stabilized, prior to discharge 142/64; pulse oximetry on 1 L of nasal cannula 97%. Hemoglobin 11.8, hematocrit 35.4. FINAL DIAGNOSES: Acute on chronic diastolic congestive heart failure Pulmonary edema Pleural effusions Hypertensive urgency Hypertensive heart disease with labile blood pressure Anemia of chronic kidney disease Severe anemia requiring blood transfusion Severe pulmonary hypertension Moderate to severe mitral and tricuspid regurgitation Diabetes mellitus with diabetic nephropathy History of breast cancer with right mastectomy End-stage renal disease on hemodialysis Gistory of CVA with expressive aphasia DISCHARGE MEDICATIONS: See Medication Reconciliation list. DISCHARGE INSTRUCTIONS: Patient was discharged to the halfway facility. Follow up with medical doctor at the facility. I have been assigned to dictate discharge summary for this account. I was not involved in the patient's management. Allie Castillo [employer] SERVICE MECH[employer]IC Oct 26, 2019 13:22
== END 2019-10-04 19:45 | DRG 291 ==
LOC: EDBD 12:27 → EMR 13:55 → 2E 14:00 → EDBEDREQ 14:35 → EDBEDREQSVC 15:33 → EDBEDREQ 15:33 → 2W 15:53 → 4E 10-03 17:47
PROC: 5A1D70Z Performance of Urinary Filtration, Intermittent, Less than 6 Hours Per Day (ICD-10-PCS; 2019-09-30)
PROC: 30233N1 Transfusion of Nonautologous Red Blood Cells into Peripheral Vein, Percutaneous Approach (ICD-10-PCS; principal; 2019-10-02)
PROC: 0DB98ZZ Excision of Duodenum, Via Natural or Artificial Opening Endoscopic (ICD-10-PCS; 2019-10-04 13:17)
PROC: 0DJD8ZZ Inspection of Lower Intestinal Tract, Via Natural or Artificial Opening Endoscopic (ICD-10-PCS; 2019-10-04 13:17)
PROC: 0DB78ZX Excision of Stomach, Pylorus, Via Natural or Artificial Opening Endoscopic, Diagnostic (ICD-10-PCS; 2019-10-04 13:17)
DX: I13.0 Hypertensive heart and chronic kidney disease with heart failure and stage 1 through stage 4 chronic kidney disease, or unspecified chronic kidney disease (principal); N18.6 End stage renal disease; I50.33 Acute on chronic diastolic (congestive) heart failure; Z88.6 Allergy status to analgesic agent; Z88.2 Allergy status to sulfonamides; E11.22 Type 2 diabetes mellitus with diabetic chronic kidney disease; Z99.2 Dependence on renal dialysis; Z85.3 Personal history of malignant neoplasm of breast; Z90.11 Acquired absence of right breast and nipple; Z79.82 Long term (current) use of aspirin; I69.320 Aphasia following cerebral infarction; Z79.4 Long term (current) use of insulin; E11.40 Type 2 diabetes mellitus with diabetic neuropathy, unspecified; E78.5 Hyperlipidemia, unspecified; K31.7 Polyp of stomach and duodenum; K22.2 Esophageal obstruction; K29.70 Gastritis, unspecified, without bleeding; K64.8 Other hemorrhoids; D63.1 Anemia in chronic kidney disease; E87.70 Fluid overload, unspecified; I16.0 Hypertensive urgency; I34.0 Nonrheumatic mitral (valve) insufficiency; I27.20 Pulmonary hypertension, unspecified; I36.1 Nonrheumatic tricuspid (valve) insufficiency; I51.3 Intracardiac thrombosis, not elsewhere classified; E11.21 Type 2 diabetes mellitus with diabetic nephropathy
CPT/HCPCS: 36415; 71045; 80048; 80053; 80061; 82270; 82962; 83880; 84484; 85007; 85025; 86706; 86850; 86900; 86901; 86920; 87040; 87081; 93005; 93306; 94003; 94150; 94660; 94664; 96374; 99285; J1815